=== PATIENT | male | born 1950 | race Caucasian/White ===

== ENCOUNTER 2022-08-11 13:41 | Emergency (ER) | payer MEDICARE, SELFPAY ==
[2022-08-11 14:11] VITALS: BP 118/72; PULSE 80; RESP 16; TEMP 36.5; O2SAT 97; BMI 25.8
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
--- NOTE | 2022-08-11 14:29 | XR_ITS ---
WS: [id number] XR ribs RT mn 3V w CXR1V [id number] REASON FOR EXAM: fall injury with rib pain FINDINGS: Cardiac device overlying the chest with left subclavian transvenous leads to the right HM and right v entricular apex. Moderate cardiomegaly. Calcified granulomatous disease in both hemithoraces. Minimally displaced fractures of the right posterior lateral fourth to the eighth ribs. This is assoc iated with a small amount of subcutaneous emphysema in the adjacent soft tissues of the right chest w all. There is also a small/moderate volume right pneumothorax, lung apex just below the right second rib. Blunting of the right costophrenic angle which may be old pleural scarring or indicate a small amount of pleural fluid. XR/XR ribs RT mn 3V w CXR1V [id number] IMPRESSION: Cardiomegaly. Multiple acute right rib fractures. Small amount of subcutaneous emphysema. Small/moderate volume right pneumothora x as above.
[2022-08-11] MEDS: ketorolac 60 mg/2 mL INJ IM (14:36)
--- NOTE | 2022-08-11 15:54 | CTR_ITS ---
PROCEDURE INFORMATION: Exam: CT Chest Without Contrast; Diagnostic Exam date and time: 08/11/2022 4:06 PM Age: 72 years old Clinical indication: Injury or trauma; Blunt trauma (contusions or hematomas); Injury details: Fall x yesterday. PT fell on his back and is complaining of anterior RT sided chest pain; Additional info: Right rib FX with small pneumothorax TECHNIQUE: Imaging protocol: Diagnostic computed tomography of the chest without contrast. Radiation optimization: All CT scans at this facility use at least one of these dose optimization techniques: automated exposure control; mA and/or kV adjustment per patient size (includes targeted exams where dose is matched to clinical indication); or iterative reconstruction. COMPARISON: CR XR ribs RT mn 3V w CXR1V [id number] 08/11/2022 2:45 PM RADIATION DOSE METRICS: Total DLP (mGy-cm): 476.7 FINDINGS: Tubes, catheters and devices: Left approach dual lead pacemaker. Lungs: Unremarkable. No consolidation. No masses. Pleural spaces: Small right pneumothorax measuring approximately 10% of the right hemithorax. Trace right pleural effusion. Heart: Coronary vasculature calcifications. Lymph nodes: Unremarkable. No enlarged lymph nodes. Vasculature: Unremarkable. No aortic aneurysm. Bones/joints: Acute fracture of the right 4th 5th 6th 7th ribs. Soft tissues: Emphysema of the right chest wall. CT/CT chest wo con [id number] IMPRESSION: 1. Acute fractures of the right 4th, 5th, 6th and 7th ribs. 2. Small right pneumothorax which remains unchanged from prior examination. 3. Trace right pleural effusion.
[2022-08-11] MEDS: acetaminophen 500 mg Tablet 1000 MG PO (17:04)
[2022-08-11 17:14] VITALS: PULSE 75; RESP 16; O2SAT 98
== END 2022-08-11 17:15 | disposition home or self-care (01) ==
PROVIDERS: Emergency Provider Physician Assistant
DX: S27.0XXA Traumatic pneumothorax, initial encounter (principal); S22.41XA Multiple fractures of ribs, right side, initial encounter for closed fracture; I25.10 Atherosclerotic heart disease of native coronary artery without angina pectoris; Z79.82 Long term (current) use of aspirin; Z95.0 Presence of cardiac pacemaker; Z95.5 Presence of coronary angioplasty implant and graft; W01.198A Fall on same level from slipping, tripping and stumbling with subsequent striking against other object, initial encounter
CPT/HCPCS: 71101; 71250; 96372; 99285; J1885

== ENCOUNTER 2022-08-13 13:17 | Observation (INO) | payer MEDICARE, SELFPAY ==
[2022-08-13] VITALS (12 sets, daily range): BP systolic 159–199; BP diastolic 77–102; PULSE 72–88; RESP 16–19; TEMP 36.7–36.8; O2SAT 92–100
--- NOTE | 2022-08-13 13:33 | ECG_ITS ---
[facility] Test Date: 2022-08-13 Pat Name: Rahul Carl Department: Room: Gender: Male .Net Architect: : [id number] Requested By: Charly Macdonald Order Number: [id number] Meagan MD: Jeanette Rosenthal M.D. Measurements Intervals [place] Rate: 84 P: 46 GA: 186 QRS: -51 QRSD: 150 T: 23 QT: 428 QTc: 507 Interpretive Statements SINUS RHYTHM POSSIBLE LEFT ATRIAL ENLARGEMENT [-0.1mV P-WAVE IN V1/V2] LEFT AXIS DEVIATION [QRS AXIS < -30] RIGHT BUNDLE BRANCH BLOCK [120+ ms QRS DURATION, UPRIGHT V1, 40+ ms S IN I/aVL/V4/V5/V6] No previous ECG available for comparison Electronically Signed On 08-14-2022 8:36:33 CDT by Jeanette Rosenthal M.D. [id number]
--- NOTE | 2022-08-13 14:31 | XRR_ITS ---
PROCEDURE INFORMATION: Exam: XR Chest Exam date and time: 08/13/2022 2:36 PM Age: 72 years old Clinical indication: Injury or trauma; Fall; Blunt trauma (contusions or hematomas); Prior surgery; Surgery type: Pacemaker TECHNIQUE: Imaging protocol: Radiologic exam of the chest. Views: 1 view. COMPARISON: CT chest con [id number] 08/11/2022 4:06 PM FINDINGS: Tubes, catheters and devices: Cardiac device left anterior chest in good position. Lungs: Unremarkable. No consolidation. Pleural spaces: Unremarkable. No pleural effusion. No pneumothorax. Heart/Mediastinum: Unremarkable. No cardiomegaly. Bones/joints: Unremarkable. XR/XR chest 1V portable [id number] IMPRESSION: 1. No acute findings. 2. Cardiac device left anterior chest in good position
--- NOTE | 2022-08-13 14:33 | ED_ITS ---
HPI - General Adult General: Chief complaint: Fall Stated complaint: Fell again, states broken ribs Time Seen by Provider: 08/13/22 14:31 History of Present Illness: Patient is a 72-year-old male with a history of right-sided rib fracture presenting to the emergency with an episode of syncope and right-sided rib pain. Patient tells me that earlier today about an hour ago she he was at home standing when he passed out and fell onto his right side. Patient complains of headache worsening right-sided rib pain. In addition, patient reporting hitting his head during the episode of fall. Patient denies any anticoagulation. Of note, on 08/11/2020, patient also had another episode of light-headedness. At that point time, patient was diagnosed with 3 right-sided rib fractures. Patient denies any associate chest pain, shortness of palpitation or lightheadedness prior to the episode of syncope. Patient denies any focal weakness in the arms or legs. Denies any diarrhea melena /hematochezia. No complaints. Patient denies any decrease in p.o. intake. Patient denies any cough, runny nose, sore throat. Patient reports the right side of his chest chest is worsening in terms of pain. Onset: 1 hr ago Duration:ongoing Location: Severity:moderate Associated symptoms: Reports chest pain (+R lateral chest pain); Deny dyspnea, nausea, rash, palpitations or vomiting Review of Systems Const: Denies: fever(s) or chills Eyes: Denies: change in vision ENMT: Denies: mouth pain Card: Reports: chest pain (+R lateral chest pain); Denies: palpitations Resp: Denies: dyspnea or non-productive cough GI: Denies: abdominal pain, nausea, vomiting or diarrhea : Denies: dysuria Musc: Denies: extremity pain Skin/Breast: Denies: rash or new lesions Neuro: Denies: weakness in extremities Psych: Reports: other (Normal mood) Freddie/Lymph: Denies: easy bruising PFS ED PFSH: Medical History Rib fracture Surgical History No pertinent past surgical history Social History Smoking and tobacco status: never smoked Alcohol intake: never Substance/Drug Use: never Physical Exam Const: COMMON NORMALS: alert HENMT: COMMON NORMALS: atraumatic HEAD & SCALP: atraumatic MOUTH: moist mucous membranes not abnormal Eye: COMMON NORMALS: EOMs intact bilaterally and conjunctivae normal CONJUNCTIVA: Yes conjunctivae normal Neck/C-Spine: COMMON NORMALS: full ROM and supple Chest: OTHER: +No palpable crepitus on the R side, +moderate tenderness to palpation over the R lateral chest Resp: COMMON NORMALS: normal respiratory effort and clear to auscultation bilaterally AUSCULTATION: clear to auscultation bilaterally Cardio: COMMON NORMALS: regular rate RATE: regular rate GI: COMMON NORMALS: Soft to palpation and non-tender PALPATION: Yes Soft to palpation Extremity: COMMON NORMALS: full ROM Neuro: SENSORIUM/ORIENTATION: Yes alert MOTOR EXAM: No Abnormal motor strength present and Other motor observations present (no focal motor deficits) Psych: COMMON NORMALS: speech normal SPEECH: Yes normal speech MOOD & AFFECT: Yes euthymic mood Course Vital Signs: Vital signs: Vital Signs Temperature 98.1 F 08/13/22 13:27 Pulse Rate 72 08/13/22 15:21 Respiratory Rate 18 08/13/22 15:21 Blood Pressure 182/89 08/13/22 15:21 Pulse Oximetry 100 08/13/22 15:21 Oxygen Delivery Me thod 08/13/22 15:21 MDM - General Adult Medical Decision Making Patient is a 72-year-old male with a history of right-sided rib fracture presenting to the emergency with an episode of syncope and right-sided rib pain occurred 1 hour ago. On physical exam, patient is moderate tenderness to palpation over the right ribs. Lungs appear to be clear bilaterally. Patient is hemodynamically stable. Neurological exam is intact other than gait which patient upon standing reports lightheadedness. Troponin x2 with delta less than 5. Patient's device was interrogated today which did not show any signs of dysrhythmia. Given recurrent syncope in the last 72 hours and history of cardiomegaly, I discussed with Dr. Diop recommended getting an echo. Disposition: admission Lab Data : 08/13/22 15:19 Radiology Impressions Chest X-Ray 08/13/22 14:31 IMPRESSION: 1. No acute findings. 2. Cardiac device left anterior chest in good position Head CT 08/13/22 14:37 IMPRESSION: No acute intracranial abnormality. Ribs X-Ray 08/13/22 15:24 Impression: No change in multiple right rib fractures minimal right subcutaneous emphysema an minute right pneumothorax. Laboratory Results WBC 6.7 10^3/uL (4.0-10.0) 08/13/22 15:19 RBC 4.57 10^6/uL (4.1-5.3) 08/13/22 15:19 Hgb 12.7 g/dL (11.7-16.6) 08/13/22 15:19 Hct 39.7 % (42.0-52.0) L 08/13/22 15:19 MCV 86.9 fl (80-94) 08/13/22 15:19 MCH 27.8 pg (28.0-34.0) L 08/13/22 15:19 MCHC 32.0 g/dL (30.0-36.0) 08/13/22 15:19 RDW 16.3 % (12.1-15.1) H 08/13/22 15:19 Plt Count 167 10^3/cmm (130-400) 08/13/22 15:19 MPV 9.1 fL (7.4-10.4) 08/13/22 15:19 Neut % (Auto) 79.3 % 08/13/22 15:19 Lymph % (Auto) 13.1 % 08/13/22 15:19 [place] % (Auto) 5.1 % 08/13/22 15:19 Eos % (Auto) 1.8 % 08/13/22 15:19 Baso % (Auto) 0.3 % 08/13/22 15:19 Neut # (Auto) 5.34 10^3/uL (1.8-7.7) 08/13/22 15:19 Lymph # (Auto) 0.9 10^3/uL (0.8-4.8) 08/13/22 15:19 [place] # (Auto) 0.3 10^3/uL (0.2-0.9) 08/13/22 15:19 Eos # (Auto) 0.1 10^3/uL (0.0-0.8) 08/13/22 15:19 Baso # (Auto) 0.0 10^3/uL (0.0-0.1) 08/13/22 15:19 Nucleated RBC % (auto) 0 % 08/13/22 15:19 Nucleated RBCs # 0.0 /100WBC 08/13/22 15:19 Troponin T Baseline 10 ng/L (0-15) 08/13/22 15:19 Imaging Data Other Imaging: Radiologist's impression: [address] [place] [address] CT Scan Report Signed Patient: Rahul Carl Unit #: [id number] : 1950 Age/Sex: 72 / M ADM Date: 08/13/22 Loc: ER Room/Bed: Attending Dr: Ordering Provider/Ordering MD: Charly Macdonald MD Date of Service: 08/13/22 Procedure(s): CT head wo con* [id number] Accession Number(s): [id number] Report Number: [id number] WS: [id number] CT head wo con* [id number] REASON FOR EXAM: fall IV CONTRAST ADMINISTERED: None. TOTAL EXAM DLP: 1106.[address] scans at [facility] use at least one of these dose optimization techniques: automated exposure control; mA and/or kV adjustment per patient size (includes targeted exams where dose is matched to clinical indication); or iterative reconstruction. FINDINGS: No midline shift or other significant mass effect. No findings of intracranial hemorrhage and no extra-axial fluid collection noted. Symmetric low-attenuation in the periventricular white matter consistent with small vessel chronic ischemic demyelination. No acute brain parenchymal abnormality is identified. The skull base and calvarium are intact. CT/CT head wo con* [id number] IMPRESSION: No acute intracranial abnormality. ? Dictated By: Rashaun Velarde Jr, MD Signed By: Rashaun Velarde Jr, MD Signed Date/Time: 08/13/22 1514 DD/ [address] [address] XRay Report Signed Patient: Rahul Carl Unit #: [id number] : 1950 Age/Sex: 72 / M ADM Date: 08/13/22 Loc: ER Room/Bed: Attending Dr: Ordering Provider/Ordering MD: Charly Macdonald MD Date of Service: 08/13/22 Procedure(s): XR chest 1V portable [id number] Accession Number(s): [id number] Report Number: [id number] PROCEDURE INFORMATION: Exam: XR Chest Exam date and time: 08/13/2022 2:36 PM Age: 72 years old Clinical indication: Injury or trauma; Fall; Blunt trauma (contusions or hematomas); Prior surgery; Surgery type: Pacemaker TECHNIQUE: Imaging protocol: Radiologic exam of the chest. Views: 1 view. COMPARISON: CT chest [facility] [id number] 08/11/2022 4:06 PM FINDINGS: Tubes, catheters and devices: Cardiac device left anterior chest in good position. Lungs: Unremarkable. No consolidation. Pleural spaces: Unremarkable. No pleural effusion. No pneumothorax. Heart/Mediastinum: Unremarkable. No cardiomegaly. Bones/joints: Unremarkable. XR/XR chest 1V portable [id number] IMPRESSION: 1. No acute findings. 2. Cardiac device left anterior chest in good position ? Dictated By: Tam Moore Signed By: Tam Moore Signed Date/Time: 08/13/22 1500 DD/ 1436 Discharge Plan Discharge Patient Disposition: Admitted As Inpatient Clinical Impression: Syncope and collapse, Pain in rib Condition: Stable Coding Level of Care Code ED Interlocking And Signal Mechanic for Chg Fwd Exam Comprehensive
--- NOTE | 2022-08-13 14:37 | CT_ITS ---
WS: [id number] CT head wo con* [id number] REASON FOR EXAM: fall IV CONTRAST ADMINISTERED: None. TOTAL EXAM DLP: 1106.[address] scans at [facility] use at least one of these dose optimization techniques: automat ed exposure control; mA and/or kV adjustment per patient size (includes targeted exams where dose is matched to clinical indication); or iterative reconstruction. FINDINGS: No midline shift or other significant mass effect. No findings of intracranial hemorrhage and no extra-axial fluid collection noted. Symmetric low-attenuation in the periventricular white matter consistent with small vessel chronic is chemic demyelination. No acute brain parenchymal abnormality is identified. The skull base and calvarium are intact. CT/CT head wo con* [id number] IMPRESSION: No acute intracranial abnormality.
[2022-08-13] MEDS: morphine 4 mg/mL SDV 1 mL IVP (15:20)
[2022-08-13] MEDS: sodium chloride 0.9% 1,000 ML 999 ML IV (15:21)
--- NOTE | 2022-08-13 15:24 | XR_ITS ---
WS: [id number] Right rib detail, 4 views, 08/13/2022 Clinical Data: rib pain Comparison: Chest with right rib detail, 08/11/2022 Findings: The fractures of the lateral aspect of the right fourth through eighth rib remain the same. There is a small amount of right lateral subcutaneous emphysema. A new right pneumothorax may be present. Ther e is a small right pleural effusion. XR/XR ribs RT 2V* [id number] Impression: No change in multiple right rib fractures minimal right subcutaneous emphysema an minute right pneumothorax.
[2022-08-13 15:33] LABS: Basophils % 0.3 %; Eosinophils # 0.1 10^3/uL (0.0-0.8); Eosinophils % 1.8 %; Hematocrit 39.7 % (42.0-52.0); Hemoglobin 12.7 g/dL (11.7-16.6); Lymphocytes # 0.9 10^3/uL (0.8-4.8); Lymphocytes % 13.1 %; Mean Corpuscular Hemoglobin 27.8 pg (28.0-34.0); Mean Corpuscular Volume 86.9 fl (80-94); Mean Platelet Volume 9.1 fL (7.4-10.4); Monocytes # 0.3 10^3/uL (0.2-0.9); Monocytes % 5.1 %; Neutrophils # 5.34 10^3/uL (1.8-7.7); Neutrophils % 79.3 %; Nucleated Red Blood Cells % 0 %; Platelet Count 167 10^3/cmm (130-400); Red Blood Count 4.57 10^6/uL (4.1-5.3); Red Cell Distribution Width 16.3 % (12.1-15.1); White Blood Count 6.7 10^3/uL (4.0-10.0)
[2022-08-13 16:18] LABS: Troponin(5th) Baseline 10 ng/L (0-15)
--- NOTE | 2022-08-13 16:46 | ECG_ITS ---
[facility] Test Date: 2022-08-13 Pat Name: Rahul Carl Department: Room: Gender: Male Special Services Agent: : 1950 Requested By: Charly Macdonald Order Number: [id number] Rhodes MD: Jeanette Rosenthal M.D. Measurements Intervals [place] Rate: 67 P: 35 MN: 180 QRS: -54 QRSD: 149 T: 0 QT: 464 QTc: 491 Interpretive Statements SINUS RHYTHM LEFT AXIS DEVIATION [QRS AXIS < -30] RIGHT BUNDLE BRANCH BLOCK [120+ ms QRS DURATION, UPRIGHT V1, 40+ ms S IN I/aVL/V4/V5/V6] Compared to ECG 08/13/2022 13:33:36 No significant changes Electronically Signed On 08-14-2022 8:40:00 CDT by Jeanette Rosenthal M.D. [email or web address] specialty [email or web address] - [id number]
--- NOTE | 2022-08-13 18:14 | USR_ITS ---
PROCEDURE INFORMATION: Exam: US Duplex Bilateral Extracranial Arteries, Carotid Arteries Exam date and time: 08/13/2022 6:48 PM Age: 72 years old Clinical indication: Other: Syncope; Patient HX: Fell a few days ago and broke RT ribs; Additional info: Recurrent syncope TECHNIQUE: Imaging protocol: Real-time Duplex ultrasound scan of the bilateral carotid and vertebral arteries combining grimaldo scale, color Doppler and spectral waveform analysis. Bilateral exam. Exam focused on the carotid arteries. COMPARISON: CT head wo con* [id number] 08/13/2022 2:53 PM FINDINGS: Right common carotid artery: Mild plaquing. No occlusion or stenosis. Waveforms are normal. Right internal carotid artery: Mild plaquing. No occlusion or stenosis. Waveforms are normal. Right ICA/CCA ratio: Within normal limits. Right external carotid artery: No stenosis in the origin. Right vertebral artery: Antegrade flow. Left common carotid artery: Mild plaquing. No occlusion or stenosis. Waveforms are normal. Left internal carotid artery: Mild plaquing. No occlusion or stenosis. Waveforms are normal. Left ICA/CCA ratio: Within normal limits. Left external carotid artery: No stenosis in the origin. Left vertebral artery: Antegrade flow. US/CV carotid duplex BI* [id number] IMPRESSION: No carotid arterial stenosis. REFERENCES: SRU CRITERIA. The degree of internal carotid artery stenosis is based on criteria defined by the Society of Radiologists in Ultrasound (SRU). Normal is no stenosis. Mild is less than 50% stenosis. Moderate is 50-69% stenosis. Severe is greater than 69% stenosis to near occlusion. Near occlusion is a markedly narrowed lumen. Total occlusion is no detectable patent lumen.
--- NOTE | 2022-08-13 18:14 | USCV_ITS ---
Rahul Carl Age: 72 Gender: M : 1950 Exam Date: 08/13/2022 18:29 Ordering Phys: Yvon Philip MD Technologist: Martha Alva Exam Location: [facility] [place] Indication: Syncope episode BP: 172 / 78 HR: 72 Rhythm: Sinus Technical Quality: Poor MEASUREMENTS (Male / Female) Normal Values 2D ECHO LV Diastolic Diameter PLAX 5.0 cm 4.2 - 5.9 / 3.9 - 5.3 cm LV Systolic Diameter PLAX 3.0 cm LV Chamber Size 3.8 cm IVS Diastolic Thickness 0.9 cm 0.6 - 1.0 / 0.6 - 0.9 cm IVS Systolic Thickness 2.0 cm LVPW Diastolic Thickness 1.3 cm 0.6 - 1.0 / 0.6 - 0.9 cm LVPW Systolic Thickness 1.5 cm RV Chamber Size 3.1 cm LVOT Diameter 2.0 cm LV Ejection Fraction 2D Teich 70.5 % LV Ejection Fraction MOD 2C 40.8 % LV Ejection Fraction 2C AL 42.7 % LA Diameter 4.2 cm LA Width 3.4 cm LA Height 4.3 cm RA Width 3.3 cm RA Height 3.6 cm Aorta at Sinotubular Diameter 3.4 cm M-MODE Aortic Annulus Diameter 4.4 cm LA Ao Ratio MM 1.1 MV E Point Septal Separation 0.9 cm DOPPLER AV Peak Velocity 116.0 cm/s LVOT Peak Velocity 74.0 cm/s AV Area Cont Eq vti 2.2 cm squared AV Area Cont Eq pk 2.1 cm squared MV Area PHT 6.9 cm squared Mitral E to A Ratio 0.7 MV E' Velocity 32.0 cm/s Mitral E to MV E' Ratio 14.7 Mitral E to LV E' Lateral Ratio 12.8 Mitral E to LV E' Septal Ratio 17.3 TR Peak Velocity 171.6 cm/s TR Peak Gradient 11.8 mmHg TR Mean Velocity 120.6 cm/s TR Mean Gradient 6.4 mmHg TR Velocity Time Integral 39.2 cm TV Peak E Velocity 43.0 cm/s Right Atrial Pressure 3.0 mmHg Pulmonary Artery Systolic Pressu 14.8 mmHg PV Peak Velocity 87.3 cm/s RV Acceleration Time 0.2 s RV Ejection Time 0.3 s RV AcT/ET 0.5 FINDINGS Left Ventricle Limited views are obtained. Parasternal and apical views are present but limited. Probably normal left ventricular size and function. Ejection fraction approximately 60%. Grade 1 diastolic dysfunction. Right Ventricle Normal right ventricular size and systolic function. Normal right ventricular systolic pressure. Right Atrium The right atrium is normal in size. Left Atrium Mildly increased left atrial size. Mitral Valve Mitral valve not well visualized. No mitral valve regurgitation. Aortic Valve Aortic valve not well visualized. No aortic valve stenosis. No aortic valve regurgitation. Tricuspid Valve Tricuspid valve not well visualized. Trace tricuspid valve regurgitation. Pulmonic Valve Pulmonic valve not well visualized. Pericardium Normal pericardium without effusion. Aorta Aorta not well visualized. IVC Inferior vena cava not visualized. CONCLUSIONS Limited views are obtained. Parasternal and apical views are present but limited. Probably normal left ventricular size and function. Ejection fraction approximately 60%. Grade 1 diastolic dysfunction. Mildly increased left atrial size. There are no prior echocardiogram studies to compare. Dr. Piyush Guthrie MD (Electronically Signed) Final Date: 14 August 2022 08:42 S
--- NOTE | 2022-08-13 18:22 | P.HP_ITS ---
Providers/Chief Complaint Chief Complaint: Fell again, states broken ribs History of Present Illness 72-year-old gentleman presents after several syncopal episodes in the last several days. He is here visiting from [place] for fishing. He fell down with a syncopal episode on 08/11 at which time he suffered rib fractures on the right side 3-7. He was post be returning today for a repeat chest x-ray due to previously noted minimal pneumothorax, and on the way out the door again nearly fainted, but states braced himself against the door handle and remained standing through the worst of the symptoms. He does not have any chest pain or shortness of breath. Has otherwise been in baseline state of health. States that these episodes have been going on intermittently sometimes for a while, has had he states reevaluation of his cardiac stents with 2 angiograms with his cardiologis t and states that there were no blockages. He also has a pacemaker which was interrogated in ER. A outside sales account representative had to be summoned since we do not have the interrogation device for his pacemaker. He denies that there is any triggering of his symptoms when he turns his head. His did not note any seizure-like activity. He denies any history of seizures. He has not had any other infection-like symptoms. He denies any recent medication changes apart from reducing the dose of statin from 40 to 20 mg. He states he maintains adequate oral intake. Baseline troponin is 10. EKG LAD, RBBB. Chest x-ray without acute findings, head CT nonacute. Rib x-ray unchanged rib fractures, minute right pneumothorax. Review of Systems Const: Denies: fever(s), chills, body aches or malaise Eyes: Denies: change in vision, eye discomfort or eye redness ENMT: Denies: throat pain, oral sores or ear or mastoid pain Card: Reports: syncope; Denies: chest pain, edema, pre-syncope or dyspnea on exertion Resp: Denies: dyspnea, productive cough, change in phlegm color or hemoptysis GI: Denies: abdominal pain, nausea, vomiting, diarrhea, constipation, hematochezia or melena : Denies: flank pain, difficulty urinating, urinary frequency or hematuria Musc: Denies: back pain, joint swelling or joint redness Skin/Breast: Denies: rash or new lesions Neuro: Reports: dizziness; Denies: headache(s), numbness in extremities, weakness in extremities, vertigo, confusion or seizure-like activity Endo: Denies: polyuria or polydipsia Freddie/Lymph: Denies: easy bleeding or tender lymph nodes All/Imm: Denies: urticaria or tongue swelling Medications/Allergies Home Medications Medication Instructions Recorded Confirmed Last Taken Type doxycycline hyclate 100 mg capsule 100 mg PO BID 10 days #20 caps 08/11/22 08/13/22 08/13/22 Rx acyclovir 400 mg tablet 400 mg PO EVERY OTHER DAY 08/13/22 08/13/22 08/11/22 History aspirin 81 mg tablet,delayed 81 mg PO DAILY 08/13/22 08/13/22 08/11/22 History release atorvastatin 40 mg tablet 20 mg PO DAILY 08/13/22 08/13/22 08/11/22 History meclizine 25 mg tablet 25 mg PO TID PRN Dizziness 08/13/22 08/13/22 Unknown History nitroglycerin 0.4 mg sublingual 0.4 mg sublingual Q5M PRN Chest 08/13/22 08/13/22 Unknown History tablet (Nitrostat) Pain omeprazole 40 mg capsule,delayed 40 mg PO DAILY 08/13/22 08/13/22 08/11/22 History release oxycodone-acetaminophen 10 mg-325 1 tab PO Q4H PRN Pain 08/13/22 08/13/22 08/11/22 History mg tablet Allergies Allergy/AdvReac Type Severity Reaction Status Date / Time No Known Allergies Allergy Verified 08/11/22 14:11 PFSH Acute PFSH: Medical History CAD (coronary artery disease) Cervical spine fracture At 17 yo, had c-spine surgery Rib fracture Surgical History H/O hand surgery No pertinent past surgical history S/P placement of cardiac pacemaker Stented coronary artery Family History Brother Cancer Social History Smoking and tobacco status: never smoked Alcohol intake: never Substance/Drug Use: never Vitals/I&O/Wt Last Vital Signs Temp 98.1 F 08/13/22 13:27 Pulse 83 08/13/22 18:07 Resp 17 08/13/22 18:07 BP 182/89 08/13/22 15:21 Pulse Ox 99 08/13/22 18:07 O2 Del Method 08/13/22 18:07 Weight last 48 hrs Weight 81.647 kg Physical Exam Narrative: Family at bedside. Const: COMMON NORMALS: patient oriented x3 and alert GENERAL APPEARANCE: cooperative ORIENTATION/CONSCIOUSNESS: Yes awake HENMT: COMMON NORMALS: oropharynx normal Neck/C-Spine: COMMON NORMALS: no JVD Resp: COMMON NORMALS: normal respiratory effort and clear to auscultation bilaterally AUSCULTATION: clear to auscultation bilaterally Cardio: COMMON NORMALS: no JVD, regular rhythm, S1 normal heart sound present, S2 normal heart sound present and No murmurs present (Cardio) RHYTHM: regular rhythm HEART SOUNDS: S1 normal heart sound present and S2 normal heart sound present GI: COMMON NORMALS: Normal to inspection, nondistended, normoactive bowel sounds present, Soft to palpation and non-tender PALPATION: Yes Soft to palpation Extremity: COMMON NORMALS: no joint enlargement and no pedal edema Neuro: COMMON NORMALS: patient oriented x3 and moves all extremities SENSORIUM/ORIENTATION: Yes alert Skin: COMMON NORMALS: no rashes or lesions noted GENERAL SKIN EXAM: no rashes or lesions noted Data : 08/13/22 15:19 08/13/22 18:10 A&P Assessment and plan (1) Syncope and collapse: Episodes of dizziness, episodes of presyncope and syncope and collapse, one of them resulting in rib fractures below. Discussed with him in case he is feeling lightheaded or presyncopal to immediately sit down or lie down even if on the floor. Will assess orthostatics. Check TTE given his cardiac history. Check carotid duplex. Pacemaker was interrogated in the ER and did not show abnormal rhythms. He otherwise has had work-up with coronary angiography he states with his visitor services coordinator. Monitor on telemetry. Status: Acute (2) HTN (hypertension): He is noted hypertensive in ER. Assess orthostatics. He reports blood pressures do not usually run this high, however, cannot remember measurements from home. Status: Acute (3) Multiple fractures of ribs of right side: Continue symptomatic management. Status: Acute Qualifiers: Encounter type: initial encounter Fracture type: closed Qualified Code(s): S22.41XA - Multiple fractures of ribs, right side, initial encounter for closed fracture (4) Pneumothorax: Reassessment x-ray with minute pneumothorax improved from prior. Status: Acute Plan CAD status post stenting PPM Attestations Medical Necessity Statement*: Place in observation for additional assessment abdomen with syncope, presyncope, underlying cardiovascular disease. Coding Level of Care Code Acute Sausage Canner for g Fwd Diagnoses Syncope and collapse R55 HTN (hypertension) I10 Multiple fractures of ribs of right side S22.41XA Encounter type: initial encounter Fracture type: closed Pneumothorax J93.9
[2022-08-13] MEDS: morphine 4 mg/mL SDV 1 mL 2 MG IVP ×2 (18:55→20:54)
[2022-08-13 19:11] LABS: Alanine Aminotransferase 19 U/L (0-41); Albumin Level 3.9 g/dL (3.5-5.2); Alkaline Phosphatase 82 U/L (40-130); Anion Gap 13.5 (5-19); Aspartate Amino Transferase 29 U/L (0-40); Blood Urea Nitrogen 6 mg/dL (8-23); Carbon Dioxide 25 mmol/L (22-29); Chloride 100 mmol/L (98-107); Globulin 2.9 g/dL (1.3-4.6); Glucose 105 mg/dL (65-115); Osmolality Calculated 278 mOsm/kg (285-295); Potassium 3.5 mmol/L (3.5-5.1); Sodium 135 mmol/L (136-145); Total Bilirubin 0.7 mg/dL (0.15-1.2); Total Protein 6.8 g/dL (6.6-8.7); Troponin 5 2HR 10.62 ng/L (0-15)
[2022-08-13 19:20] LABS: Troponin 5 2HR Delta -0.62 ABS# (0-10)
[2022-08-13 19:40] LABS: Magnesium 1.7 mg/dL (1.7-2.3)
--- NOTE | 2022-08-13 22:09 | ECG_ITS ---
[facility] Test Date: 2022-08-13 Pat Name: Rahul Carl Department: Room: 266 Gender: Male Primary Therapist: : 1950 Requested By: Charly Macdonald Order Number: [id number] Meagan MD: Piyush Guthrie M.D. Measurements Intervals [place] Rate: 70 P: 37 AR: 186 QRS: -46 QRSD: 150 T: 15 QT: 439 QTc: 474 Interpretive Statements SINUS RHYTHM RIGHT BUNDLE BRANCH BLOCK [120+ ms QRS DURATION, UPRIGHT V1, 40+ ms S IN I/aVL/V4/V5/V6] LEFT ANTERIOR FASCICULAR BLOCK [QRS AXIS <= -45, QR IN I, RS IN II] Compared to ECG 08/13/2022 16:46:17 Left anterior fascicular block now present Left-axis deviation no longer present Electronically Signed On 08-14-2022 9:43:03 CDT by Piyush Guthrie M.D. [id number]
[2022-08-13 22:39] LABS: Troponin 5 6HR 12.64 ng/L (0-15)
[2022-08-13 22:44] LABS: Troponin 5 6HR Delta 2.64 ng/L (0-12)
[2022-08-13] MEDS: oxyCODONE-APAP 10-325 mg Tablet 1 TAB PO (23:15)
[2022-08-13] MEDS: labetalol 5 mg/mL SDV 20mL 10 MG IVP (23:36)
[2022-08-14] VITALS (11 sets, daily range): BP systolic 160–194; BP diastolic 80–92; PULSE 60–71; RESP 15–19; TEMP 36.4–36.9; O2SAT 95–97
[2022-08-14] MEDS: oxyCODONE-APAP 10-325 mg Tablet 1 TAB PO ×3 (04:33→13:31)
[2022-08-14] MEDS: atorvastatin 40 mg Tablet 20 MG PO (09:43)
[2022-08-14] MEDS: pantoprazole DR 40 mg Tablet PO (09:44)
[2022-08-14] MEDS: aspirin 81 mg EC Tablet PO (09:44)
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
[2022-08-14] MEDS: midodrine 5 mg TABLET PO (13:18)
--- NOTE | 2022-08-14 15:13 | PC.NURSE ---
Discharge Note Patient discharged to [home] via [wheel chair] accompanied by [family]. Discharge instructions reviewed with patient and/or provider service representative. Mobile pharmacy medications and/or prescriptions provided. Belongings/home medications returned.
== END 2022-08-14 15:17 | disposition home or self-care (01) ==
LOC: ER 14:40 → MEDSURG 20:57
PROVIDERS: Admitting Provider Internal Medicine; Emergency Provider Emergency Medicine; Visit Provider Internal Medicine
DX: R55 Syncope and collapse (principal); I10 Essential (primary) hypertension; S22.41XA Multiple fractures of ribs, right side, initial encounter for closed fracture; W19.XXXA Unspecified fall, initial encounter; J93.9 Pneumothorax, unspecified; Z95.0 Presence of cardiac pacemaker; Z79.82 Long term (current) use of aspirin; I25.10 Atherosclerotic heart disease of native coronary artery without angina pectoris
CPT/HCPCS: 36415; 70450; 71045; 71100; 80053; 83735; 84484; 85025; 93005; 93306; 93880; 96361; 96365; 96375; 96376; 99285; G0378; J2270; J3475; J3490; J7030

== ENCOUNTER 2024-02-21 21:53 | Inpatient (IN) | payer MEDICARE, SELFPAY ==
--- NOTE | 2024-02-21 21:54 | ECG_ITS ---
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 Measurements Intervals [place] Rate: 61 P: 151 MA: 205 QRS: -64 QRSD: 146 T: 13 QT: 476 QTc: 481 Interpretive Statements ELECTRONIC ATRIAL PACEMAKER RIGHT BUNDLE BRANCH BLOCK [120+ ms QRS DURATION, UPRIGHT V1, 40+ ms S IN I/aVL/V4/V5/V6] LEFT ANTERIOR FASCICULAR BLOCK [QRS AXIS <= -45, QR IN I, RS IN II] POSSIBLE SEPTAL MYOCARDIAL INFARCTION , PROBABLY OLD [30 ms Q WAVE IN V1/V2] Compared to ECG 08/13/2022 22:09:31 Myocardial infarct finding now present Sinus rhythm no longer present Electronically Signed On 02-22-2024 23:49:45 CDT by Wenceslao Redmond M.D. [id number]
--- NOTE | 2024-02-21 21:54 | XRR_ITS ---
PROCEDURE INFORMATION: Exam: XR Chest Exam date and time: 02/21/2024 10:08 PM Age: 73 years old Clinical indication: Pain; Chest pressure; Prior surgery; Surgery date: 6+ months; Surgery type: Pacer; Additional info: Cxp TECHNIQUE: Imaging protocol: Radiologic exam of the chest. Views: 1 view. COMPARISON: CR XR chest 1V portable [id number] 08/13/2022 2:36 PM FINDINGS: Lungs: No focal consolidation. Pleural spaces: No evidence of pneumothorax. No evidence of pleural effusion. Heart/Mediastinum: Cardiomediastinal silhouette is within normal limits. Left subclavian approach dual-chamber pacemaker. Bones/joints: No evidence of acute osseous abnormality. Multiple chronic right-sided rib fractures. XR/XR chest 1V portable [id number] IMPRESSION: 1. No acute cardiopulmonary abnormality.
[2024-02-21 21:55] VITALS: BP 133/78; PULSE 61; RESP 18; TEMP 36.7; O2SAT 95; BMI 26.6
--- NOTE | 2024-02-21 21:56 | W.ED.CHESTPA ---
HPI - Chest Pain General: Chief Complaint: Chest Pain Stated Complaint: CP Time Seen by Provider: 02/21/24 21:54 History of Present Illness: 73-year-old male presents to the emergency department via EMS personnel with complaints of feeling like he was having syncopal episodes. EMS personnel presented EKG cardiac rhythm that shows wide-complex tachycardia with a heart rate of 116 on 3 separate occasions during transport. He states he has had these recurrent episodes of syncope in the past. He does have a history of pneumothorax secondary to trauma, CHF-grade 1 diastolic dysfunction, coronary artery disease, and coronary artery stents. He states he does have a permanent pacemaker in place. He states he is originally from [place] but is down visiting his family and trying to help take care of his sister. He states that tonight his children witnessed him having 2 near syncopal episodes where he became dizzy and lightheaded. He states he does have some intermittent left anterior chest pain that he describes as a 4 out of 10 and sharp. He denies nausea, vomiting or shortness of breath. The patient's family states that he does drink approximately 20 beers daily and has for many years. Associated symptoms: Reports syncope Review of Systems General: Reports: 10 or more systems reviewed and unremarkable except in HPI and below Card: Reports: chest pain and syncope [facility] PFSH: Medical History (Updated 02/22/24 @ 02:18 by Juan Ramon Tejeda MD) Atypical chest pain HTN (hypertension) Pneumothorax Pain in rib Multiple fractures of ribs of right side CAD (coronary artery disease) Cervical spine fracture At 17 yo, had c-spine surgery Rib fracture Surgical History Stented coronary artery H/O hand surgery S/P placement of cardiac pacemaker No pertinent past surgical history Family History Brother Cancer Social History Smoking and tobacco/nicotine status: never used tobacco/nicotine Alcohol intake: never Substance/Drug Use: never Physical Exam Narrative: EXAM NARRATIVE: Constitutional: the patient appears well nourished and with normal development. Vital signs reviewed as documented. HENMT: Normocephalic, atraumatic. External ears normal appearance without drainage. Nose without drainage, normal appearance. Mucus membranes moist. Neck is supple, No jugular venous distension, trachea is midline, no appreciable carotid bruits. No lymphadenopathy. No meningeal signs. Flexion, extension and lateral rotation is without pain. Eyes: Pupils are equal, round, reactive to light and accommodation. No scleral icterus. Extra-ocular movement are intact. Thorax is symmetrical and with equal rise and fall with respirations. Resp: Lungs are clear to auscultation. No wheezes, rales, crackles or ronchi at present. Cardio: Paced rhythm, positive S1, S2. No appreciable murmurs, rubs or gallops. GI: Abdominal exam reveals normal bowel sounds to all quadrants. No organomegaly. No obvious palpable masses noted. No hepatomegally appreciated. Soft, non-tender to palpation. Extremity: Extremities are non-edematous and both femoral and pedal pulses are 2+ and equal bilaterally. Moves all extremities well, sensation in all extremities. Neuro: Alert and oriented x4, person, place, time and situation. Cranial nerves II through XII are grossly intact, there is no focal neurological deficits that I can appreciate at present. Sensation intact to all extremities. 2-point discrimination intact. Light touch intact to all extremities. Motor strength in the upper and lower extremities are equal and bilateral 5/5. Psych: Cooperative, calm, normal thought process, appropriate judgment. Skin: No lesions, rashes. No gross abnormalities noted. Back: Symmetrical, no obvious deformity, No CVA tenderness Course Vital Signs: Vital signs: Vital Signs Temperature 98.0 F 02/22/24 03:00 Pulse Rate 64 02/22/24 04:00 Respiratory Rate 15 02/22/24 04:00 Blood Pressure 147/61 02/22/24 04:00 Pulse Oximetry 93 02/22/24 03:30 Oxygen Delivery Me thod Room Air 02/22/24 04:00 MDM - Chest Pain Medical Decision Making Physical exam completed and documented, I will obtain serial cardiac enzymes, serial twelve-lead EKGs, chest x-ray, CBC, CMP, urinalysis, B-type natriuretic peptide, PT/PTT/INR, and a chest x-ray. I will hold his cardiac dose aspirin as it was administered via EMS personnel. I have reviewed previous and pertinent medical records for assist in obtaining beneficial medical information to improved the care and treatment of the patient. The CBC was essentially unremarkable, the patient's sodium level was significantly low at 127, BNP was slightly elevated at 494 the patient's alcohol level was elevated at 150, patient does have a pacemaker in place and review of the initial cardiac tracing from the operations dispatcher demonstrates wide-complex tachycardia concerning for pacemaker dysfunction. The patient did complain of left chest wall pain and the cardiac enzymes were essentially normal. Given the patient's syncopal episode and hyponatremia as well as his EKG presentation from EMS I did contact the hospitalist physician to request admission to the hospital for additional evaluation treatment and care. I contacted the veterans contact representative for the patient's pacemaker and requested interrogation of the pacemaker. At the request of the hospitalist physician I also contacted Dr. Redmond the stadium attendant to consult him given the patient's cardiac history. Differential diagnosis includes electrolyte abnormality, pulmonary embolism, NSTEMI, pacemaker dysfunction, dehydration, alcohol intoxication, electrolyte abnormality, vasovagal syncope, Medical Records I reviewed the patient's medical records. Lab Data I reviewed the patient's lab results. 02/22/24 04:30 02/22/24 04:30 Radiology Impressions Chest X-Ray 02/21/24 21:54 IMPRESSION: 1. No acute cardiopulmonary abnormality. Chest CTA 02/22/24 01:49 IMPRESSION: 1. No pulmonary embolus. 2. No acute intrathoracic findings. 3. Pleural thickening with scattered calcifications, correlate with occupational exposures. 4. Additional nonacute findings as above. Laboratory Results WBC 7.18 10^3/uL (3.29-11.43) 02/21/24 21:58 RBC 4.80 10^6/uL (3.85-5.65) 02/21/24 21:58 Hgb 15.40 g/dL (11.27-16.99) 02/21/24 21:58 Hct 44.7 % (37-53) 02/21/24 21:58 MCV 93.1 fl (82-101) 02/21/24 21:58 MCH 32.1 pg (27-33) 02/21/24 21:58 MCHC 34.5 g/dL (30-55) 02/21/24 21:58 RDW 13.5 % (12.1-15.1) 02/21/24 21:58 Plt Count 149 10^3/cmm (157-399) L 02/21/24 21:58 MPV 8.8 fL (7.4-10.4) 02/21/24 21:58 Neut % (Auto) 52.2 % 02/21/24 21:58 Lymph % (Auto) 36.5 % 02/21/24 21:58 [place] % (Auto) 7.1 % 02/21/24 21:58 Eos % (Auto) 3.2 % 02/21/24 21:58 Baso % (Auto) 0.6 % 02/21/24 21:58 Neut # (Auto) 3.75 10^3/uL (1.8-7.7) 02/21/24 21:58 Lymph # (Auto) 2.6 10^3/uL (0.8-4.8) 02/21/24 21:58 [place] # (Auto) 0.5 10^3/uL (0.2-0.9) 02/21/24 21:58 Eos # (Auto) 0.2 10^3/uL (0.0-0.8) 02/21/24 21:58 Baso # (Auto) 0.0 10^3/uL (0.0-0.1) 02/21/24 21:58 Nucleated RBC % (auto) 0 % 02/21/24 21:58 Nucleated RBCs # 0.0 /100WBC 02/21/24 21:58 PT 14.40 SECONDS (12.1-14.9) 02/21/24 21:58 INR 1.08 (0.8-1.2) 02/21/24 21:58 D-Dimer 1.48 ug/mLFEU (0-0.59) H 02/21/24 22:08 Sodium 127 mmol/L (136-145) L 02/21/24 21:58 Potassium 4.8 mmol/L (3.5-5.1) 02/21/24 21:58 Chloride 95 mmol/L (98-107) L 02/21/24 21:58 Carbon Dioxide 18 mmol/L (22-29) L 02/21/24 21:58 Anion Gap 18.8 (5-19) 02/21/24 21:58 BUN 7 mg/dL (8-23) L 02/21/24 21:58 Creatinine 0.8 mg/dL (0.7-1.2) 02/21/24 21:58 GFR Calculation Not Reportable 02/21/24 21:58 Glucose 105 mg/dL (65-115) 02/21/24 21:58 Calculated Osmolality 262 mOsm/kg (285-295) L 02/21/24 21:58 Calcium 8.3 mg/dL (8.5-10.5) L 02/21/24 21:58 Total Bilirubin 0.7 mg/dL (0.15-1.2) 02/21/24 21:58 AST 39 U/L (0-40) 02/21/24 21:58 ALT 21 U/L (0-41) 02/21/24 21:58 Alkaline Phosphatase 67 U/L (40-130) 02/21/24 21:58 Troponin T Baseline 16 ng/L (0-15) H 02/21/24 21:58 Troponin T 120 Minute 13.43 ng/L (0-15) 02/21/24 23:54 Delta Troponin T -2.57 ABS# (0-10) L 02/21/24 23:54 NT-Pro-B Natriuret Pep 494 pg/mL (0-125) H 02/21/24 21:58 Total Protein 6.4 g/dL (6.6-8.7) L 02/21/24 21:58 Albumin 4.0 g/dL (3.5-5.2) 02/21/24 21:58 Globulin 2.4 g/dL (1.3-4.6) 02/21/24 21:58 Vitamin B12 188 pg/mL (232-1245) L 02/21/24 23:54 25-OH Vitamin D Total 12 ng/mL (30-100) L 02/21/24 23:54 TSH 3.68 uIU/mL (0.27-4.20) 02/21/24 23:54 PTH Intact 77.8 pg/mL (15-65) H 02/21/24 23:54 Calcium (PTH Intact) 8.1 mg/dL (8.5-10.5) L 02/21/24 23:54 Ethyl Alcohol 150 mg/dL (0-10) H 02/21/24 23:54 All radiology interpretation(s) finalized by discharge EKG Data EKG 1: Interpretation: Initial twelve-lead EKG obtained at 2200 demonstrates atrial paced rhythm with a ventricular rate of 61 bpm, TX interval 205, QRS duration 146 QT 476 QTc 479 at present there is no ST elevation or depression to demonstrate acute ischemia or infarction. EKG 2: Interpretation: Twelve-lead EKG obtained at 2351 again demonstrates an atrial paced cardiac rhythm with a ventricular rate of 60 bpm, TX interval 212, QRS duration 143 QT 473 QTc [address] elevation or depression at present Discharge Plan Discharge Patient Disposition: Admitted As Inpatient Admit Provider: Dallas Uribe Clinical Impression: Syncope and collapse, Ventricular tachycardia by electrocardiogram, Acute hyponatremia Condition: Stable Coding Level of Care Code ED Sales Utility Representative for Kesha Samano
[2024-02-21 22:14] LABS: Basophils % 0.6 %; Eosinophils # 0.2 10^3/uL (0.0-0.8); Eosinophils % 3.2 %; Hematocrit 44.7 % (37-53); Lymphocytes # 2.6 10^3/uL (0.8-4.8); Lymphocytes % 36.5 %; Mean Corpuscular HGB Conc 34.5 g/dL (30-55); Mean Corpuscular Hemoglobin 32.1 pg (27-33); Mean Corpuscular Volume 93.1 fl (82-101); Mean Platelet Volume 8.8 fL (7.4-10.4); Monocytes # 0.5 10^3/uL (0.2-0.9); Monocytes % 7.1 %; Neutrophils # 3.75 10^3/uL (1.8-7.7); Neutrophils % 52.2 %; Nucleated Red Blood Cells % 0 %; Platelet Count 149 10^3/cmm (157-399); Red Cell Distribution Width 13.5 % (12.1-15.1); White Blood Count 7.18 10^3/uL (3.29-11.43)
[2024-02-21 22:24] LABS: INR 1.08 (0.8-1.2)
[2024-02-21 22:30] VITALS: BP 123/63; PULSE 60; RESP 16; O2SAT 92
[2024-02-21 22:36] LABS: Troponin(5th) Baseline 16 ng/L (0-15)
[2024-02-21 22:43] LABS: Alanine Aminotransferase 21 U/L (0-41); Alkaline Phosphatase 67 U/L (40-130); Blood Urea Nitrogen 7 mg/dL (8-23); Calcium 8.3 mg/dL (8.5-10.5); Carbon Dioxide 18 mmol/L (22-29); Chloride 95 mmol/L (98-107); Globulin 2.4 g/dL (1.3-4.6); Glucose 105 mg/dL (65-115); NT Pro B Type Natriuretic Pept 494 pg/mL (0-125); Osmolality Calculated 262 mOsm/kg (285-295); Sodium 127 mmol/L (136-145); Total Bilirubin 0.7 mg/dL (0.15-1.2); Total Protein 6.4 g/dL (6.6-8.7)
[2024-02-21 22:45] VITALS: BP 122/63; PULSE 60; RESP 18; O2SAT 95
[2024-02-21 22:46] LABS: Anion Gap 18.8 (5-19); Aspartate Amino Transferase 39 U/L (0-40); Potassium 4.8 mmol/L (3.5-5.1)
[2024-02-21 23:00] VITALS: BP 125/65; PULSE 60; RESP 20; O2SAT 97
[2024-02-21 23:30] VITALS: BP 141/68; PULSE 60; RESP 14; O2SAT 96
[2024-02-21 23:45] VITALS: BP 100/77; PULSE 61; RESP 16; O2SAT 97
--- NOTE | 2024-02-21 23:54 | ECG_ITS ---
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 Measurements Intervals [place] Rate: 60 P: 142 MO: 212 QRS: -61 QRSD: 143 T: 23 QT: 473 QTc: 473 Interpretive Statements ELECTRONIC ATRIAL PACEMAKER RIGHT BUNDLE BRANCH BLOCK [120+ ms QRS DURATION, UPRIGHT V1, 40+ ms S IN I/aVL/V4/V5/V6] LEFT ANTERIOR FASCICULAR BLOCK [QRS AXIS <= -45, QR IN I, RS IN II] POSSIBLE SEPTAL MYOCARDIAL INFARCTION , PROBABLY OLD [30 ms Q WAVE IN V1/V2] Compared to ECG 02/21/2024 22:00:39 No significant changes Electronically Signed On 02-23-2024 0:02:13 CDT by Wenceslao Redmond M.D. [email or web address] [email or web address].[email or web address]/store/OM/[id number]
[2024-02-22] VITALS (44 sets, daily range): BP systolic 88–188; BP diastolic 56–117; PULSE 60–80; RESP 10–33; TEMP 36.4–36.8; O2SAT 93–98; BMI 28.5
--- NOTE | 2024-02-22 | PC.NURSE ---
Nurse educated pt and family not to drink or eat anything for MD approval upon awaiting results. Nurse was notified by registration that pt was drinking coffee, MD to bedside. Pt reeducated on not eating or drinking.
[2024-02-22 00:16] LABS: Troponin 5 2HR 13.43 ng/L (0-15)
[2024-02-22 00:19] LABS: Troponin 5 2HR Delta -2.57 ABS# (0-10)
--- NOTE | 2024-02-22 00:28 | PC.NURSE ---
[employer] called for pacemaker to be interrogated. The rep is to call back when they are available to come and do it.
--- NOTE | 2024-02-22 01:11 | P.HP_ITS ---
Providers/Chief Complaint 2 Chief Complaint: CP History of Present Illness Rahul Carl is a 73 year old male with history of recurrent syncopal events, coronary disease, status post pacemaker placement, presenting today with chief complaint of 2 syncopal events at home. In the past patient was started on midodrine as well for orthostatic hypotension, review of records reveal he has history of grade 1 diastolic dysfunction, carotid duplex without carotid artery stenosis, patient is endorsing drinking alcohol up to 20 beers a day. Diagnostic workup in the ER revealed hyponatremia, pacemaker interrogation requested, cardiology consulted, he will stay on fluid restriction in ICU EKG showing paced rhythm up to 60s, EMS reported that when they received the patient heart rate was low and there was no pacemaker spikes and there was concern that he is not getting captured beats Patient is stating that around 8 PM he was going towards his bedroom when he experienced for syncopal event, he blacked out for few seconds, he landed on a nightstand, after an hour he had another episode while he was currently or just himself in the bed, he blacked out again for a few seconds 30 minutes after he start experiencing chest pain on left side he is able to pinpoint towards his left chest pain area which he is describing as pressure, chest pain is not intense at the time of my evaluation, no recent fever, diarrhea shortness of breath, patient is stating that pacemaker was placed at [facility] about 2- 1/2 years ago secondary to recurrent syncopal events, he is stating that his data abstractor at 1 point told him to get his pacemaker removed because he is not dependent on it and etiology was still unclear, as per the patient placement was placed out of desperate measure when his syncopal events were not getting better. He is planning to move to [facility] in summer soon. Right now he is waiting for his granddaughter graduate from high school. Troponin is 16, second troponin is 13 with negative delta BNP 494 Clinically does not look fluid overloaded I am requesting D-dimer, Review of Systems 2 Const: Denies: fever(s) Eyes: Denies: change in vision ENMT: Denies: throat pain Card: Reports: chest pain Resp: Denies: dyspnea GI: Denies: abdominal pain : Denies: flank pain Musc: Reports: back pain Skin/Breast: Denies: rash Neuro: Denies: headache(s) or sensory changes Medications/Allergies Home Medications Medication Instructions Recorded Confirmed Last Taken Type acyclovir 400 mg tablet 400 mg PO EVERY OTHER DAY 08/13/22 08/13/22 08/11/22 History aspirin 81 mg tablet,delayed 81 mg PO DAILY 08/13/22 08/13/22 08/11/22 History release atorvastatin 40 mg tablet 20 mg PO DAILY 08/13/22 08/13/22 08/11/22 History meclizine 25 mg tablet 25 mg PO TID PRN Dizziness 08/13/22 08/13/22 Unknown History nitroglycerin 0.4 mg sublingual 0.4 mg sublingual Q5M PRN Chest 08/13/22 08/13/22 Unknown History tablet (Nitrostat) Pain omeprazole 40 mg capsule,delayed 40 mg PO DAILY 08/13/22 08/13/22 08/11/22 History release oxycodone-acetaminophen 10 mg-325 1 tab PO Q4H PRN Pain 08/13/22 08/13/22 08/11/22 History mg tablet midodrine 5 mg tablet 5 mg PO TID #90 tabs 08/14/22 Unknown Rx miscellaneous medical supply #1 ea 08/14/22 Unknown Rx (Blood Pressure Cuff) Allergies Allergy/AdvReac Type Severity Reaction Status Date / Time No Known Allergies Allergy Verified 02/21/24 22:04 PFSH Acute 2 PFSH: Medical History (Updated 02/22/24 @ 01:55 by Dallas Uribe MD) Atypical chest pain HTN (hypertension) Pneumothorax Pain in rib Multiple fractures of ribs of right side CAD (coronary artery disease) Cervical spine fracture At 17 yo, had c-spine surgery Rib fracture Surgical History Stented coronary artery H/O hand surgery S/P placement of cardiac pacemaker No pertinent past surgical history Family History Brother Cancer Social History Smoking and tobacco/nicotine status: never used tobacco/nicotine Alcohol intake: never Substance/Drug Use: never Vitals/I&O/Wt Last Vital Signs Temp 98.0 F 02/21/24 21:55 Pulse 61 02/21/24 21:55 Resp 18 02/21/24 21:55 BP 133/78 02/21/24 21:55 Pulse Ox 95 02/21/24 21:55 O2 Del Method Room Air 02/21/24 21:55 Weight last 48 hrs Weight 79.379 kg Physical Exam 2 Narrative: Euvolemic GCS 15 Pleasant cooperative Nonfocal neuroexam No active chest pain Hemodynamically stable Heart rate 60 Afebrile Currently on room air Pleasant and cooperative Data 02/21/24 21:58 02/21/24 21:58 A&P Assessment and plan (1) Syncope and collapse: (2) Unstable angina: (3) D-dimer, elevated: Plan Syncope and collapse Unstable angina Negative delta troponin EKG showing paced rhythm Pacemaker interrogation requested Dr. Redmond consulted Echo requested Continue aspirin and atorvastatin History of coronary disease No active chest pain at the time of evaluation Patient is able to pinpoint versus chest pain area however describes it as pressure-like sensation Abnormal D-dimer will request CTA chest rule out PE Acute on chronic hyponatremia beer protomania Alcohol consumption 20 beers daily Fluid restriction 1000 mL/day CIWA protocol Recurrent syncopal events Check B12 and TSH Pacemaker was placed 2-1/2 years ago at [facility] Planning to move to [place] in summer Diastolic CHF without acute exacerbation BNP is high however clinic does not look fluid overloaded Hold off on Lasix for now Cardiac diet Full code DVT prophylaxis added Attestations 2 Medical Necessity Statement*: More than 2 midnights anticipated will need ICU admission for hyponatremia, syncopal event and chest pain management Diagnoses Syncope and collapse R55 Unstable angina I20.0 D-dimer, elevated R79.89
--- NOTE | 2024-02-22 01:22 | PC.NURSE ---
erin barlow called and is on his way here. estimated about 2 hours before arrival
[2024-02-22 01:26] LABS: D Dimer 1.48 ug/mLFEU (0-0.59)
--- NOTE | 2024-02-22 01:49 | CTR_ITS ---
PROCEDURE INFORMATION: Exam: CTA Chest With Contrast Exam date and time: 02/22/2024 2:13 AM Age: 73 years old Clinical indication: Angina; Prior surgery; Surgery date: 6+ months; Surgery type: Stents, pacemaker; Additional info: Syncope TECHNIQUE: Imaging protocol: Computed tomographic angiography of the chest with contrast. Exam focused on the arteries. 3D rendering (Not supervised by radiologist): MIP and/or 3D reconstructed images were created by the technologist. Radiation optimization: All CT scans at this facility use at least one of these dose optimization techniques: automated exposure control; mA and/or kV adjustment per patient size (includes targeted exams where dose is matched to clinical indication); or iterative reconstruction. Contrast material: OMNI 350; Contrast volume: 75 ml; Contrast route: INTRAVENOUS (IV); COMPARISON: CT chest [facility] [id number] 08/11/2022 4:06 PM RADIATION DOSE METRICS: Total DLP (mGy-cm): 395.24 FINDINGS: Tubes, catheters and devices: Left chest wall pacemaker device with intact catheters terminating along the right atrium and right ventricle. Pulmonary arteries: No luminal filling defect to suggest pulmonary embolus. Aorta: Unchanged prominence of the aortic root. Lungs: Scattered atelectasis and scarring. Pleural spaces: Scattered pleural thickening with calcifications. Sequela of granulomatous disease. Heart: Unremarkable. No cardiomegaly. No pericardial effusion. Coronary arteries: Severe calcified atherosclerotic disease of the coronary vasculature. Lymph nodes: Unremarkable. No enlarged lymph nodes. Diaphragm: Unchanged appearance hiatal hernia, predominantly fat containing. Bones/joints: Scattered moderate degenerative changes of the visualized osseous structures. Healed right rib fractures. Severe calcified atherosclerotic disease of the visualized aorta and its major branches. Soft tissues: Unremarkable. Other findings: Stable scattered micronodularity. CT/CT angio chest PE protcl [id number] IMPRESSION: 1. No pulmonary embolus. 2. No acute intrathoracic findings. 3. Pleural thickening with scattered calcifications, correlate with occupational exposures. 4. Additional nonacute findings as above.
[2024-02-22] MEDS: iohexol 350 mg/mL 500 mL Btl (per mL) IV (02:16)
--- NOTE | 2024-02-22 02:19 | USCV_ITS ---
Rahul Carl Age: 73 Gender: M : 1950 Exam Date: 02/22/2024 03:17 Ordering Phys: Dallas Uribe MD Technologist: RAMSES [place] [facility] [place]ication: c/o syncope. History of pacer 2020, History of CAD, s/p cardiac stenting. BP: 138 / 77 HR: 60 Rhythm: Sinus Technical Quality: Adequate MEASUREMENTS (Male / Female) Normal Values 2D ECHO LV Diastolic Diameter PLAX 5.1 cm 4.2 - 5.9 / 3.9 - 5.3 cm IVS Diastolic Thickness 1.7 cm 0.6 - 1.0 / 0.6 - 0.9 cm IVS Systolic Thickness 2.3 cm LVPW Diastolic Thickness 1.3 cm 0.6 - 1.0 / 0.6 - 0.9 cm LVPW Systolic Thickness 2.0 cm LVOT Diameter 2.0 cm LV Ejection Fraction 2D Teich 71.8 % LV Ejection Fraction MOD 2C 63.0 % LV Ejection Fraction 2C AL 65.1 % LA Diameter 4.2 cm Aorta at Sinotubular Diameter 3.2 cm IVC Diameter 1.3 cm M-MODE LA Ao Ratio MM 1.3 AV Cusp Separation MM 1.7 cm DOPPLER AV Peak Velocity 109.0 cm/s LVOT Peak Velocity 78.0 cm/s AV Area Cont Eq vti 3.0 cm squared AV Area Cont Eq pk 2.3 cm squared MV Peak Velocity 100.0 cm/s MV Area PHT 2.3 cm squared Mitral E to A Ratio 0.7 TV Peak Velocity 226.0 cm/s TR Peak Velocity 226.0 cm/s TR Peak Gradient 20.4 mmHg TV Peak E Velocity 34.0 cm/s Right Atrial Pressure 3.0 mmHg Pulmonary Artery Systolic Pressu 23.4 mmHg PV Peak Velocity 104.0 cm/s FINDINGS Left Ventricle Normal left ventricular size and systolic function, EF 63% . No regional wall motion abnormalities. Mild left ventricular hypertrophy. Grade I/IV diastolic dysfunction (abnormal relaxation filling pattern), normal to mildly elevated filling pressures. Right Ventricle Catheter/pacemaker wire in the right ventricular cavity. Right Atrium Catheter/pacemaker wire in the right atrial cavity. Left Atrium Mildly increased left atrial size. Mitral Valve Trace mitral valve regurgitation. Aortic Valve Thickened aortic valve. Mild aortic valve calcification. Tricuspid Valve Trace tricuspid valve regurgitation. Estimated pulmonary artery peak systolic pressure 23 mm Hg. Pulmonic Valve Pulmonic valve not well visualized. Pericardium No pericardial effusion. Aorta Normal ascending aorta dimension. IVC The inferior vena cava appears normal. CONCLUSIONS Normal left ventricular size and systolic function, EF 63% . No regional wall motion abnormalities. Mild left ventricular hypertrophy. Grade I/IV diastolic dysfunction (abnormal relaxation filling pattern), normal to mildly elevated filling pressures. Thickened aortic valve. Mild aortic valve calcification. Trace mitral valve regurgitation. Trace tricuspid valve regurgitation. Estimated pulmonary artery peak systolic pressure 23 mm Hg. There is no pericardial effusion. There are no intracardiac masses. Compared to the study from 08/13/2022, there may not be significant change Dr Wenceslao Redmond MD [facility] (Electronically Signed) Final Date: 22 February 2024 09:58 S
--- NOTE | 2024-02-22 02:22 | PC.NURSE ---
Chest Pain: Pt states 6/10 pain. When asked to elaborate, pt states, its tolerable, but I'd rather not have it .
[2024-02-22 02:27] LABS: Calcium 8.1 mg/dL (8.5-10.5)
[2024-02-22 02:28] LABS: Alcohol Level 150 mg/dL (0-10)
[2024-02-22 02:33] LABS: Parathyroid Hormone 77.8 pg/mL (15-65)
--- NOTE | 2024-02-22 02:35 | PC.NURSE ---
Arrival to ICU 5: Pt arrived to ICU 5 @0219. Pt refused full body skin assessment and stated he had no wounds. Pt was educated on fall risk status, pt was not agreeable to this, stated I'm just fine to walk and use the bathroom on my own . Pt did agree to sit down if he felt dizzy or lightheaded.
[2024-02-22 02:43] LABS: 25 Hydroxy Vitamin D 12 ng/mL (30-100)
[2024-02-22] MEDS: morphine IR 15 mg Tablet PO ×3 (03:02→14:21)
[2024-02-22 03:04] LABS: Thyroid Stimulating Hormone 3.68 uIU/mL (0.27-4.20); Vitamin B12 188 pg/mL (232-1245)
[2024-02-22 04:38] LABS: Basophils % 0.6 %; Eosinophils # 0.2 10^3/uL (0.0-0.8); Hematocrit 44.2 % (37-53); Lymphocytes # 1.7 10^3/uL (0.8-4.8); Lymphocytes % 34.8 %; Mean Corpuscular HGB Conc 34.2 g/dL (30-55); Mean Corpuscular Hemoglobin 32.3 pg (27-33); Mean Corpuscular Volume 94.6 fl (82-101); Mean Platelet Volume 8.3 fL (7.4-10.4); Monocytes # 0.4 10^3/uL (0.2-0.9); Monocytes % 7.7 %; Neutrophils # 2.62 10^3/uL (1.8-7.7); Neutrophils % 53.3 %; Nucleated Red Blood Cells % 0 %; Platelet Count 116 10^3/cmm (157-399); Red Blood Count 4.67 10^6/uL (3.85-5.65); Red Cell Distribution Width 13.5 % (12.1-15.1); White Blood Count 4.92 10^3/uL (3.29-11.43)
[2024-02-22 05:02] LABS: Anion Gap 17.2 (5-19); Blood Urea Nitrogen 7 mg/dL (8-23); Calcium 8.4 mg/dL (8.5-10.5); Carbon Dioxide 20 mmol/L (22-29); Chloride 101 mmol/L (98-107); Creatinine Clr Calc Pharmacy 86.1305; Glucose 84 mg/dL (65-115); Osmolality Calculated 275 mOsm/kg (285-295); Phosphorus 3.5 mg/dL (2.5-4.5); Potassium 4.2 mmol/L (3.5-5.1); Sodium 134 mmol/L (136-145); Troponin 5 6HR 12.24 ng/L (0-15)
[2024-02-22 05:03] LABS: Troponin 5 6HR Delta -3.76 ng/L (0-12)
[2024-02-22] MEDS: acetaminophen 500 mg Tablet PO (07:39)
[2024-02-22] MEDS: folic acid 1 mg Tablet PO (08:26)
[2024-02-22] MEDS: multivitamin therapeutic Tablet 1 TAB PO (08:26)
[2024-02-22] MEDS: atorvastatin 40 mg Tablet 20 MG PO (08:26)
[2024-02-22] MEDS: aspirin 81 mg EC Tablet PO (08:26)
[2024-02-22] MEDS: calcium carb-vit d 600mg/400unit 1 Tablet 1 EACH PO ×2 (08:26→17:36)
[2024-02-22] MEDS: thiamine 100 mg Tablet PO (08:26)
[2024-02-22] MEDS: sennosides-docusate Tablet 1 TAB PO (08:26)
[2024-02-22] MEDS: pantoprazole DR 40 mg Tablet PO (08:26)
[2024-02-22] MEDS: enoxaparin 40 mg/0.4 mL Syringe SUBCUT (08:27)
--- NOTE | 2024-02-22 08:46 | PM.CONSULT ---
Providers/Reason For Consult Consulting Physician/Specialty*: JOSH Redmond MD/cardiology Reason for Consult*: Patient with SVT Requesting Physician: Dr. Uribe Attending Physician: Dallas Uribe MD History of Present Illness History of Present Illness Rhaul Carl is a 73 year old male with a history of atherosclerotic heart disease and syncopal episodes was initially presented to the emergency room of the [facility] with the complaints of recurrent episodes of syncope. The ambulance service thought that the pacemaker may be working. Patient is transferred to our facility for further evaluation and management. This patient is known to have recurrent episodes of syncope since age of 19. Apparently he had extensive evaluations at the [facility] in [place] and also in the [facility] in the past. According to the patient, nobody could identify the etiology of these episodes. He has a questionable history of orthostatic hypotension. He had a permanent pacer implantation 4 years ago thinking that this might be helpful. But according the patient, the frequency of the spells have not changed after the pacemaker insertion. Patient was found to have features of pacemaker mediated tachycardia with the device interrogation. The pacemaker was reprogrammed earlier this morning for this. This patient also has a history of atherosclerotic heart diseas. He had a PCI of one of the arteries, approximately 8 years ago. He had a repeat PCI 3 to 4 years after this. Details of this are not available. Patient is being followed by a rotary drill operator at the [facility] in [place]. Yesterday, he was at home walking down the hallway. All of a sudden, without a warning, he passed out to the floor. Few minutes later, he had the same spell in the bedroom. He had any chest pain or palpitation prior to this episode. Following the fall, he has been having pain in the left side of the chest. He seems to think that he might have hit the floor on the left side. The pain is constant with some worsening with deep inspiration. No other specific complaints at this time. On the telemetry, the rhythm is normal sinus/atrial paced rhythm. The patient drinks beer every day-heavy drinking, around 20 a day Review of Systems Narrative: CONSTITUTIONAL: No fever or chills. EYES: No blurring of vision or other visual disturbances lately. ENT: No hoarseness of voice, auditory disturbances or sore throat. CARDIOVASCULAR: As mentioned above. RESPIRATORY: No significant cough. GASTROINTESTINAL: No hematemesis or melena. GENITOURINARY: No dysuria or hematuria. INTEGUMENTARY: No skin rashes or history of skin cancer. NEURO: No transient ischemic attacks or amaurosis. PSYCHIATRIC: No history of psychosis or major depression. HEMATOLOGIC: No bleeding disorders or significant anemia. ENDOCRINE: No history of polyuria or polydipsia. MUSCULOSKELETAL: No recent joint pain or swelling. ALLERGY/IMMUNOLOGY: As mentioned above. Medications/Allergies Home Medications Medication Instructions Recorded Confirmed Last Taken Type acyclovir 400 mg tablet 400 mg PO EVERY OTHER DAY 08/13/22 02/22/24 08/11/22 History aspirin 81 mg tablet,delayed 81 mg PO DAILY 08/13/22 02/22/24 08/11/22 History release atorvastatin 40 mg tablet 20 mg PO DAILY 08/13/22 02/22/24 08/11/22 History meclizine 25 mg tablet 25 mg PO TID PRN Dizziness 08/13/22 02/22/24 Unknown History nitroglycerin 0.4 mg sublingual 0.4 mg sublingual Q5M PRN Chest 08/13/22 02/22/24 Unknown History tablet (Nitrostat) Pain omeprazole 40 mg capsule,delayed 40 mg PO DAILY 08/13/22 02/22/24 08/11/22 History release oxycodone-acetaminophen 10 mg-325 1 tab PO Q4H PRN Pain 08/13/22 02/22/24 08/11/22 History mg tablet midodrine 5 mg tablet 5 mg PO TID #90 tabs 08/14/22 02/22/24 Unknown Rx miscellaneous medical supply #1 ea 08/14/22 02/22/24 Unknown Rx (Blood Pressure Cuff) folic acid 1 mg tablet 1 mg PO DAILY #90 tabs 02/23/24 Unknown Rx losartan 25 mg tablet 25 mg PO DAILY PRN BP >160/90 #30 02/23/24 Unknown Rx tabs multivitamin with folic acid 400 1 tab PO DAILY #90 tabs 02/23/24 Unknown Rx mcg tablet (Thera) thiamine mononitrate (vit B1) 100 100 mg PO DAILY #90 tabs 02/23/24 Unknown Rx mg tablet (Vitamin B-1 (mononitrate)) Allergies Allergy/AdvReac Type Severity Reaction Status Date / Time codeine Allergy ADR-Nausea Verified 02/22/24 09:04 Current Medications Generic Name Dose Route Start Last Admin Trade Name Vernonq PRN Reason Stop Dose Admin Acetaminophen 500 mg 02/22/24 02:19 02/22/24 07:39 Acetaminophen 500 Mg Tablet PO 500 mg Q4H PRN Administration fever Aspirin 81 mg 02/22/24 09:00 02/22/24 08:26 Aspirin 81 Mg Ec Tablet PO 81 mg DAILY ESPERANZA Administration Atorvastatin Calcium 20 mg 02/22/24 09:00 02/22/24 08:26 Atorvastatin 40 Mg Tablet PO 20 mg DAILY ESPERANZA Administration Calcium Carbonate 1 each 02/22/24 09:00 02/22/24 08:26 Calcium Carb-Vit D 600mg/400unit 1 Tablet PO 1 each BID ESPERANZA Administration Enoxaparin Sodium 40 mg 02/22/24 09:00 02/22/24 08:27 Enoxaparin 40 Mg/0.4 Ml Syringe SUBCUT 40 mg Q24H ESPERANZA Administration Folic Acid 1 mg 02/22/24 09:00 02/22/24 08:26 Folic Acid 1 Mg Tablet PO 1 mg DAILY ESPERANZA Administration Morphine Sulfate 15 mg 02/22/24 02:19 02/22/24 08:25 Morphine Ir 15 Mg Tablet PO 15 mg Q6H PRN Administration MODERATE PAIN Multivitamins Therapeutic 1 tab 02/22/24 09:00 02/22/24 08:26 Multivitamin Therapeutic Tablet PO 1 tab DAILY ESPERANZA Administration Pantoprazole Sodium 40 mg 02/22/24 09:00 02/22/24 08:[address] 40 Mg Tablet PO 40 mg DAILY ESPERANZA Administration Senna/Docusate Sodium 1 tab 02/22/24 09:00 02/22/24 08:26 Sennosides-Docusate Tablet PO 1 tab DAILY ESPERANZA Administration Thiamine Mononitrate 100 mg 02/22/24 09:00 02/22/24 08:26 Thiamine 100 Mg Tablet PO 100 mg DAILY ESPERANZA Administration PFSH Acute PFSH: Medical History Atypical chest pain HTN (hypertension) Pneumothorax Pain in rib Multiple fractures of ribs of right side CAD (coronary artery disease) Cervical spine fracture At 17 yo, had c-spine surgery Rib fracture Surgical History Stented coronary artery H/O hand surgery S/P placement of cardiac pacemaker No pertinent past surgical history Family History Brother Cancer Social History Smoking and tobacco/nicotine status: never used tobacco/nicotine Alcohol intake: never Substance/Drug Use: never Vitals/I&O/Wt Last Vital Signs Temp 98.2 F 02/22/24 08:00 Pulse 80 02/22/24 08:30 Resp 20 H 02/22/24 08:30 BP 108/66 02/22/24 08:30 Pulse Ox 95 02/22/24 08:30 O2 Del Method Room Air 02/22/24 08:00 02/21/24 02/22/24 02/22/24 22:59 06:59 14:59 Output Total 1375 / 1375 Balance -1375 / -1375 Weight last 48 hrs Weight 183 lb 7 oz Weight 188 lb 1.6 oz Weight 175 lb Physical Exam Narrative: GENERAL: The patient is alert and oriented times three. Not in any acute distress. HEENT: No significant pallor, icterus or lymphadenopathy.Oral cavity: There are no mucous membrane lesions. NECK: Trachea appears to be central. No masses noted. No JVD or thyromegaly appreciated. RESPIRATORY: Chest is symmetrical. No intercostals muscle retraction or any accessory muscle activation. There is chest wall tenderness on the left inframammary region. Breath sounds are heard bilaterally. No rales or rhonchi heard. No evidence of any consolidation. BREASTS: Deferred. HEART: The heart sounds are normal. No S3 or S4. No significant murmurs. No pericardial rub ABDOMEN: No vessel pulsations or distention. No tenderness. No organomegaly appreciated. Bowel sounds are normally heard. : Deferred. RECTAL: Deferred. LYMPHATIC: No lymphadenopathy noted in the neck. EXTREMITIES: No edema or cyanosis. No clubbing. MUSCULOSKELETAL: No acute joint deformities or swelling SKIN: There are no significant rashes or ecchymosis NEUROPSYCHIATRIC: The patient is alert and oriented x3. Appears to be in a good mood. No tremors or rigidity noted. Data 02/23/24 04:43 02/23/24 04:43 Other Labs: Laboratory Last Values WBC 4.92 10^3/uL (3.29-11.43) 02/22/24 04:30 RBC 4.67 10^6/uL (3.85-5.65) 02/22/24 04:30 Hgb 15.10 g/dL (11.27-16.99) 02/22/24 04:30 Hct 44.2 % (37-53) 02/22/24 04:30 MCV 94.6 fl (82-101) 02/22/24 04:30 MCH 32.3 pg (27-33) 02/22/24 04:30 MCHC 34.2 g/dL (30-55) 02/22/24 04:30 RDW 13.5 % (12.1-15.1) 02/22/24 04:30 Plt Count 116 10^3/cmm (157-399) L 02/22/24 04:30 MPV 8.3 fL (7.4-10.4) 02/22/24 04:30 Neut % (Auto) 53.3 % 02/22/24 04:30 Lymph % (Auto) 34.8 % 02/22/24 04:30 [place] % (Auto) 7.7 % 02/22/24 04:30 Eos % (Auto) 3.0 % 02/22/24 04:30 Baso % (Auto) 0.6 % 02/22/24 04:30 Neut # (Auto) 2.62 10^3/uL (1.8-7.7) 02/22/24 04:30 Lymph # (Auto) 1.7 10^3/uL (0.8-4.8) 02/22/24 04:30 [place] # (Auto) 0.4 10^3/uL (0.2-0.9) 02/22/24 04:30 Eos # (Auto) 0.2 10^3/uL (0.0-0.8) 02/22/24 04:30 Baso # (Auto) 0.0 10^3/uL (0.0-0.1) 02/22/24 04:30 Nucleated RBC % (auto) 0 % 02/22/24 04:30 Nucleated RBCs # 0.0 /100WBC 02/22/24 04:30 PT 14.40 SECONDS (12.1-14.9) 02/21/24 21:58 INR 1.08 (0.8-1.2) 02/21/24 21:58 D-Dimer 1.48 ug/mLFEU (0-0.59) H 02/21/24 22:08 Sodium 134 mmol/L (136-145) L 02/22/24 04:30 Potassium 4.2 mmol/L (3.5-5.1) 02/22/24 04:30 Chloride 101 mmol/L (98-107) 02/22/24 04:30 Carbon Dioxide 20 mmol/L (22-29) L 02/22/24 04:30 Anion Gap 17.2 (5-19) 02/22/24 04:30 BUN 7 mg/dL (8-23) L 02/22/24 04:30 Creatinine 0.6 mg/dL (0.7-1.2) L 02/22/24 04:30 GFR Calculation Not Reportable 02/22/24 04:30 Glucose 84 mg/dL (65-115) 02/22/24 04:30 Calculated Osmolality 275 mOsm/kg (285-295) L 02/22/24 04:30 Calcium 8.4 mg/dL (8.5-10.5) L 02/22/24 04:30 Phosphorus 3.5 mg/dL (2.5-4.5) 02/22/24 04:30 Magnesium 2.0 mg/dL (1.7-2.3) 02/22/24 04:30 Total Bilirubin 0.7 mg/dL (0.15-1.2) 02/21/24 21:58 AST 39 U/L (0-40) 02/21/24 21:58 ALT 21 U/L (0-41) 02/21/24 21:58 Alkaline Phosphatase 67 U/L (40-130) 02/21/24 21:58 Troponin T Baseline 16 ng/L (0-15) H 02/21/24 21:58 Troponin T 120 Minute 13.43 ng/L (0-15) 02/21/24 23:54 Delta Troponin T -2.57 ABS# (0-10) L 02/21/24 23:54 Troponin T Hi Sens 6Hr 12.24 ng/L (0-15) 02/22/24 04:30 Troponin T Hi Sens 6Hr Delta -3.76 ng/L (0-12) L 02/22/24 04:30 NT-Pro-B Natriuret Pep 494 pg/mL (0-125) H 02/21/24 21:58 Total Protein 6.4 g/dL (6.6-8.7) L 02/21/24 21:58 Albumin 4.0 g/dL (3.5-5.2) 02/21/24 21:58 Globulin 2.4 g/dL (1.3-4.6) 02/21/24 21:58 Vitamin B12 188 pg/mL (232-1245) L 02/21/24 23:54 25-OH Vitamin D Total 12 ng/mL (30-100) L 02/21/24 23:54 TSH 3.68 uIU/mL (0.27-4.20) 02/21/24 23:54 PTH Intact 77.8 pg/mL (15-65) H 02/21/24 23:54 Calcium (PTH Intact) 8.1 mg/dL (8.5-10.5) L 02/21/24 23:54 Ethyl Alcohol 150 mg/dL (0-10) H 02/21/24 23:54 EKG 1: My Interpretation: Sinus rhythm with intermittent demand a paced rhythm. Right bundle branch block. Left anterior fascicular block. A&P Assessment and plan (1) Recurrent syncope: The etiology of the recurrent syncope is not clear. It is possible that the patient may have a vasodepressive type of syncope. (2) Pacemaker-mediated tachycardia: The pacemaker was reprogrammed for the [facility]. Currently he seems to be staying in sinus rhythm (3) Atherosclerotic heart disease of [place] coronary artery with other forms of angina pectoris: Patient chest pain is somewhat atypical. He has a musculoskeletal component for the pain. It might be appropriate to do a Myocardial perfusion imaging to evaluate for any underlying coronary ischemia . (4) Chest pain: The patient chest pain most likely is musculoskeletal. Because of the history of the syncope, may be appropriate to go ahead and do a an exercise/sestamibi/sestamibi stress test to better evaluate the coronary status. Qualifiers: Chest pain type: unspecified Qualified Code(s): R07.9 - Chest pain, unspecified Plan Patient may be closely monitored on telemetry. Based on the results of the above tests and the patient's clinical progress, further recommendations will be made. Thank you for the opportunity to evaluate this patient and make these recommendations Consult Attestations Medical Necessity Statement: Patient requires continued hospital stay for close monitoring and further management Coding Level of Care Code 26460 Diagnoses Recurrent syncope R55 Pacemaker-mediated tachycardia I49.9 Atherosclerotic heart disease of [place] coronary artery with other forms of angina pectoris I25.118 Chest pain, unspecified type R07.9 Chest pain type: unspecified
[2024-02-22] MEDS: amlodipine 5 mg Tablet PO (10:54)
--- NOTE | 2024-02-22 13:15 | ECG_ITS ---
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 Interpretive Statements NAME OF STUDY: LEXISCAN SESTAMIBI STRESS TEST INDICATION: Chest Pain PROCEDURE: At the baseline, the EKG revealed normal sinus rhythm with a right bundle branch block pattern. Left anterior fascicular block. No acute ST-T changes. The baseline heart was 70 bpm with a blood pressue of 146/76 mm of Hg Lexiscan was infused over a period of 20 seconds. A total of 0.4 milligrams of Lexiscan was infused. The stress phase was continued for a total of 5 minutes. Heart rate at the end of the stress phase was 91 bpm with a blood pressure 149/84 mm of Hg. The EKG at the peak infusion revealed no significant changes. Sestamibi was injected 20 seconds after the Lexiscan infusion. Heart rate at the end of the recovery phase was 87 bpm with a blood pressure of 132/86 mm of Hg. CONCLUSION: 1. No significant EKG changes with the LexiScan infusion 2. No LexiScan induced chest pain or cardiac arrhythmia 3. Normal blood pressure and heart rate response 4. Sestamibi/sestamibi perfusion scan pending; see separate report. Electronically Signed On 02-27-2024 8:41:32 CDT by Wenceslao Redmond M.D. [id number]
--- NOTE | 2024-02-22 14:12 | P.PN_ITS ---
Subjective 2 Subjective: He is doing okay at the moment, other than has been having some sharp chest pain on the left side anterior to mid axillary line in the mid to lower chest. No presyncopal or syncopal symptoms with getting up to the restroom. Blood pressure labile today, decreased down as low as 88/76 this morning after morphine, orthostatics were negative, however, during my visit blood pressure up as high as 190/111. Vitals/I&O/Wt Last Vital Signs Temp 98.2 F 02/22/24 11:30 Pulse 70 02/22/24 11:30 Resp 23 H 02/22/24 11:30 BP 184/88 02/22/24 11:30 Pulse Ox 95 02/22/24 11:30 O2 Del Method Room Air 02/22/24 11:30 02/21/24 02/22/24 02/22/24 22:59 06:59 14:59 Intake Total 200 / 200 Output Total 1375 / 1375 Balance -1375 / -1375 200 / 200 Weight last 48 hrs Weight 83.206 kg Weight 85.321 kg Weight 79.379 kg Physical Exam 2 Narrative: Accompanied by family. Const: COMMON NORMALS: patient oriented x3 and alert GENERAL APPEARANCE: c ooperative ORIENTATION/CONSCIOUSNESS: Yes awake HENMT: COMMON NORMALS: oropharynx normal Neck/C-Spine: COMMON NORMALS: no JVD Resp: COMMON NORMALS: normal respiratory effort and clear to auscultation bilaterally AUSCULTATION: clear to auscultation bilaterally Cardio: COMMON NORMALS: no JVD, regular rhythm, S1 normal heart sound present, S2 normal heart sound present and No murmurs present (Cardio) RHYTHM: regular rhythm HEART SOUNDS: S1 normal heart sound present and S2 normal heart sound present GI: COMMON NORMALS: Normal to inspection, nondistended, normoactive bowel sounds present, Soft to palpation and non-tender PALPATION: Yes Soft to palpation Extremity: COMMON NORMALS: no joint enlargement and no pedal edema Neuro: COMMON NORMALS: patient oriented x3 and moves all extremities S ENSORIUM/ORIENTATION: Yes alert Skin: COMMON NORMALS: no rashes or lesions noted GENERAL SKIN EXAM: no rashes or lesions noted Data 02/22/24 04:30 02/22/24 04:30 A&P Assessment and plan (1) Syncope and collapse: (2) Unstable angina: (3) D-dimer, elevated: Plan Syncope and collapse: Reviewed vitals, CBC, INR, D-dimer, MP, magnesium, phosphorus, troponin series, vitamin D, PTH, calcium, echocardiogram, CTA, cardiology note, discussed with union representative. Discussed with casey saw operator. Troponin series unremarkable, without signs of ischemia, EKG without signs of acute DC on my interpretation, pending cardiology read. He is having some left- sided chest pain but this appears to be musculoskeletal after his fall. CT angiogram without suggestion of PE. He is having labile hypertension, blood pressure as low as 88/76 this morning after receiving morphine, but with fluctuation up as high as 190/111 this afternoon during my visit, then coming down as low as 112/56 very shortly after receiving amlodipine, this afternoon 169/82 and shortly after 135/70. Orthostatics were negative, but he certainly does have quite labile blood pressures. Discussed with him and the family need for close monitoring of blood pressures, as well as does seem to have prodromal symptoms as he feels lightheaded, discussed with him to sit down or lie down immediately without trying to find a place to sit down as that will risk syncope, fall, injury and call for help. He does have a walker at home, recommended considering having his walker with him so he has a place to sit down or at least something to try to help him get down. Discussed close monitoring of blood pressure, discussed consideration of episodic hypertension, pill in the pocket treatment as needed for hypertensive episodes. With amlodipine monitor for risk of orthostatic hypotension. Has had a carotid duplex back in July without carotid stenosis. Monitor on telemetry. He did have some pacemaker related tachycardia, although per discussion with cardiology this was not likely the cause of his syncope. His pacemaker parameters were adjusted. No other abnormality noted on review of p.m. interrogation report. Unstable labile hypertension: Discussed with cardiology, recommendation is for additional treatment and monitoring in the hospital with such large fluctuations. He was given amlodipine. Reassess blood pressure.Will also try to ambulate with supervision around ICU. We will in the meantime transfer to medical surgical floor. Discussed with him abstinence from alcohol due to hypertension and alcohol contributing to elevated blood pressure. Acute on chronic hyponatremia: Improved. Sodium up to 134. Have some mucosal dryness, possibly dehydration, does drink beer, although it is also a diuretic. Will DC fluid restriction. It was more hypovolemic hyponatremia, but will reassess volume status, chemistry. beer protomania EtOH overuse: Reports at least 8-10 beers daily. With him recommendation for abstinence from alcohol. Risk with continued alcohol consumption. Discussed with him assistance consideration may be given to therapeutic intervention, possibly follow-up with rehabilitation, he will let us know in case he is needing assistance. Asked also to further follow-up with primary provider. CIWA protocol, Monitor for withdrawal. Recurrent syncopal events Check B12 and TSH Pacemaker was placed 2-1/2 years ago at [facility] Planning to move to [place] in summer Elevated PTH, vitamin D deficiency. Replace vitamin D. Follow-up with endocrinology. Hypocalcemia: Replace vitamin D, calcium. Diastolic CHF without acute exacerbation BNP is high however clinic does not look fluid overloaded Hold off on Lasix for now Cardiac diet Full code DVT prophylaxis added Attestations 2 Medical Necessity Statement*: Continue admission for optimization of control of uncontrolled/labile hypertension, further monitoring after recurrent syncopal episodes and gentleman with EtOH abuse, risk of withdrawal. Diagnoses Syncope and collapse R55 Unstable angina I20.0 D-dimer, elevated R79.89
--- NOTE | 2024-02-22 15:59 | PC.NURSE ---
Report GIven to [facility] AGUILAR on med surge. transferred to room 276 bed 2. Attempted to notifiy primary contact Sandra Vasquez, but there as no answer. Family was already made aware of Med surge overflow status and liklihood of transfer to med surge.
[2024-02-22] MEDS: LORazepam 2 mg/mL INJ 10 mL MDV IVP (17:59)
[2024-02-23] VITALS (9 sets, daily range): BP systolic 126–179; BP diastolic 76–104; PULSE 60–78; RESP 15–17; TEMP 36.1–36.3; O2SAT 91–98
[2024-02-23 04:58] LABS: Basophils % 0.4 %; Eosinophils # 0.1 10^3/uL (0.0-0.8); Hematocrit 48.2 % (37-53); Lymphocytes # 1.2 10^3/uL (0.8-4.8); Lymphocytes % 23.8 %; Mean Corpuscular HGB Conc 33.4 g/dL (30-55); Mean Corpuscular Hemoglobin 31.9 pg (27-33); Mean Corpuscular Volume 95.6 fl (82-101); Mean Platelet Volume 8.7 fL (7.4-10.4); Monocytes # 0.4 10^3/uL (0.2-0.9); Monocytes % 7.3 %; Neutrophils # 3.33 10^3/uL (1.8-7.7); Neutrophils % 66.1 %; Nucleated Red Blood Cells % 0 %; Platelet Count 119 10^3/cmm (157-399); Red Blood Count 5.04 10^6/uL (3.85-5.65); Red Cell Distribution Width 13.8 % (12.1-15.1); White Blood Count 5.04 10^3/uL (3.29-11.43)
[2024-02-23 05:21] LABS: Alanine Aminotransferase 18 U/L (0-41); Albumin Level 3.6 g/dL (3.5-5.2); Alkaline Phosphatase 75 U/L (40-130); Aspartate Amino Transferase 27 U/L (0-40); Blood Urea Nitrogen 9 mg/dL (8-23); Calcium 8.9 mg/dL (8.5-10.5); Carbon Dioxide 24 mmol/L (22-29); Chloride 103 mmol/L (98-107); Creatinine Clr Calc Pharmacy 85.1611; Globulin 2.7 g/dL (1.3-4.6); Glucose 117 mg/dL (65-115); Osmolality Calculated 280 mOsm/kg (285-295); Sodium 135 mmol/L (136-145); Total Bilirubin 0.9 mg/dL (0.15-1.2); Total Protein 6.3 g/dL (6.6-8.7)
[2024-02-23 05:24] LABS: C Reactive Protein 6.5 mg/L (0.0-4.9)
[2024-02-23] MEDS: regadenoson 0.4 Mg/5 ml Syringe 0.400000000000000022 MG IVP (07:37)
--- NOTE | 2024-02-23 08:00 | NMCV_ITS ---
NM tu perf SPECT r/s* [id number] Rahul Carl Age: 73 Gender: M : 1950 Exam Date: 02/23/2024 06:40 Ordering Phys: Wenceslao Redmond MD ([email or web address]) Technologist: FIONA Mitchell Exam Location: [facility] Indications: CHEST PAIN STRESS TEST Please [facility] IMAGE PROTOCOL Rest/Stress 1 Lexiscan Day Radiopharmaceutical Dose (mCi) Administration Site Administered by Rest: Tc-99m 10.9 IV FIONA De Jesus Sestamibi Stress:Tc-99m 32.8 IV FIONA De Jesus Sestamibi Rest: 23-Feb-2024 60 Discovery 630 Stress: 23-Feb-2024 30 Discovery 630 0.4mg Lexiscan. Images obtained in supine and prone position. SPECT RESULTS Technical Quality: Excellent Raw Data Analysis: Normal Image Corrections: No attenuation or motion correction applied Summed Stress Score: 5 Summed Rest Score: 6 Summed Difference Score: 0 PERFUSION FINDINGS Small to moderate area of moderately decreased tracer uptake involving the mid anterolateral, mid inferolateral and apical lateral regions. No significant reversibility was noted in these regions. FUNCTIONAL RESULTS (calculated via Gated SPECT) Stress Image LV EF (%): 57 Stress EDV (mL):83 TID: 0.85 Stress ESV (mL):36 FUNCTIONAL FINDINGS: Segmental wall motion analysis revealing no gross wall motion abnormalities IMPRESSIONS 1. Myocardial perfusion imaging revealing small to moderate area of persistent decreased tracer uptake involving the anterolateral, inferolateral and apical lateral regions suggesting myocardial scarring versus attenuation artifact. 2. Normal LV ejection fraction 57%. 3. LV wall motion analysis revealing no gross wall motion abnormalities. 4. Normal LV volume Low probability for coronary ischemia, based on the above findings. No similar previous studies are available for comparison Dr Wenceslao Redmond MD [facility] (Electronically Signed) Final Date: 23 February 2024 16:17 S
[2024-02-23] MEDS: calcium carb-vit d 600mg/400unit 1 Tablet 1 EACH PO (09:24)
[2024-02-23] MEDS: atorvastatin 40 mg Tablet 20 MG PO (09:24)
[2024-02-23] MEDS: enoxaparin 40 mg/0.4 mL Syringe SUBCUT (09:24)
[2024-02-23] MEDS: thiamine 100 mg Tablet PO (09:24)
[2024-02-23] MEDS: multivitamin therapeutic Tablet 1 TAB PO (09:24)
[2024-02-23] MEDS: folic acid 1 mg Tablet PO (09:24)
[2024-02-23] MEDS: sennosides-docusate Tablet 1 TAB PO (09:25)
[2024-02-23] MEDS: aspirin 81 mg EC Tablet PO (09:33)
[2024-02-23] MEDS: pantoprazole DR 40 mg Tablet PO (09:33)
[2024-02-23] MEDS: morphine IR 15 mg Tablet PO (13:59)
--- NOTE | 2024-02-23 16:38 | PM.PN ---
Vitals/I&O/Wt Last Vital Signs Temp 97.4 F L 02/23/24 10:46 Pulse 75 02/23/24 16:00 Resp 17 02/23/24 16:00 BP 162/88 02/23/24 16:00 Pulse Ox 95 02/23/24 16:00 O2 Del Method Room Air 02/23/24 10:46 02/23/24 02/23/24 02/23/24 06:59 14:59 22:59 Intake Total 1200 / 1200 Balance 1200 / 1200 Weight last 48 hrs Weight 183 lb Weight 183 lb 7 oz Weight 188 lb 1.6 oz Weight 175 lb Data 02/23/24 04:43 02/23/24 04:43 Other Labs: Laboratory Last Values WBC 5.04 10^3/uL (3.29-11.43) 02/23/24 04:43 RBC 5.04 10^6/uL (3.85-5.65) 02/23/24 04:43 Hgb 16.10 g/dL (11.27-16.99) 02/23/24 04:43 Hct 48.2 % (37-53) 02/23/24 04:43 MCV 95.6 fl (82-101) 02/23/24 04:43 MCH 31.9 pg (27-33) 02/23/24 04:43 MCHC 33.4 g/dL (30-55) 02/23/24 04:43 RDW 13.8 % (12.1-15.1) 02/23/24 04:43 Plt Count 119 10^3/cmm (157-399) L 02/23/24 04:43 MPV 8.7 fL (7.4-10.4) 02/23/24 04:43 Neut % (Auto) 66.1 % 02/23/24 04:43 Lymph % (Auto) 23.8 % 02/23/24 04:43 [place] % (Auto) 7.3 % 02/23/24 04:43 Eos % (Auto) 2.0 % 02/23/24 04:43 Baso % (Auto) 0.4 % 02/23/24 04:43 Neut # (Auto) 3.33 10^3/uL (1.8-7.7) 02/23/24 04:43 Lymph # (Auto) 1.2 10^3/uL (0.8-4.8) 02/23/24 04:43 [place] # (Auto) 0.4 10^3/uL (0.2-0.9) 02/23/24 04:43 Eos # (Auto) 0.1 10^3/uL (0.0-0.8) 02/23/24 04:43 Baso # (Auto) 0.0 10^3/uL (0.0-0.1) 02/23/24 04:43 Nucleated RBC % (auto) 0 % 02/23/24 04:43 Nucleated RBCs # 0.0 /100WBC 02/23/24 04:43 PT 14.40 SECONDS (12.1-14.9) 02/21/24 21:58 INR 1.08 (0.8-1.2) 02/21/24 21:58 D-Dimer 1.48 ug/mLFEU (0-0.59) H 02/21/24 22:08 Sodium 135 mmol/L (136-145) L 02/23/24 04:43 Potassium 4.0 mmol/L (3.5-5.1) 02/23/24 04:43 Chloride 103 mmol/L (98-107) 02/23/24 04:43 Carbon Dioxide 24 mmol/L (22-29) 02/23/24 04:43 Anion Gap 12.0 (5-19) 02/23/24 04:43 BUN 9 mg/dL (8-23) 02/23/24 04:43 Creatinine 0.8 mg/dL (0.7-1.2) 02/23/24 04:43 GFR Calculation Not Reportable 02/23/24 04:43 Glucose 117 mg/dL (65-115) H 02/23/24 04:43 Calculated Osmolality 280 mOsm/kg (285-295) L 02/23/24 04:43 Calcium 8.9 mg/dL (8.5-10.5) 02/23/24 04:43 Phosphorus 3.5 mg/dL (2.5-4.5) 02/22/24 04:30 Magnesium 2.0 mg/dL (1.7-2.3) 02/22/24 04:30 Total Bilirubin 0.9 mg/dL (0.15-1.2) 02/23/24 04:43 AST 27 U/L (0-40) 02/23/24 04:43 ALT 18 U/L (0-41) 02/23/24 04:43 Alkaline Phosphatase 75 U/L (40-130) 02/23/24 04:43 Troponin T Baseline 16 ng/L (0-15) H 02/21/24 21:58 Troponin T 120 Minute 13.43 ng/L (0-15) 02/21/24 23:54 Delta Troponin T -2.57 ABS# (0-10) L 02/21/24 23:54 Troponin T Hi Sens 6Hr 12.24 ng/L (0-15) 02/22/24 04:30 Troponin T Hi Sens 6Hr Delta -3.76 ng/L (0-12) L 02/22/24 04:30 C-Reactive Protein 6.5 mg/L (0.0-4.9) H 02/23/24 04:43 NT-Pro-B Natriuret Pep 494 pg/mL (0-125) H 02/21/24 21:58 Total Protein 6.3 g/dL (6.6-8.7) L 02/23/24 04:43 Albumin 3.6 g/dL (3.5-5.2) 02/23/24 04:43 Globulin 2.7 g/dL (1.3-4.6) 02/23/24 04:43 Vitamin B12 188 pg/mL (232-1245) L 02/21/24 23:54 25-OH Vitamin D Total 12 ng/mL (30-100) L 02/21/24 23:54 TSH 3.68 uIU/mL (0.27-4.20) 02/21/24 23:54 PTH Intact 77.8 pg/mL (15-65) H 02/21/24 23:54 Calcium (PTH Intact) 8.1 mg/dL (8.5-10.5) L 02/21/24 23:54 Ethyl Alcohol 150 mg/dL (0-10) H 02/21/24 23:54 Coding Level of Care Code Acute Code for Chg Fwd
--- NOTE | 2024-02-23 23:15 | PM.DCS ---
Discharge Providers Date of Admission: 02/22/24 01:38 Date of Discharge: February 23, 2024 Attending Provider at Admission: Dallas Uribe MD Attending Provider at Discharge: Yvon Philip Primary Care Provider: Abhay Alvarenga MD Diagnoses at Discharge Discharge Diagnosis (1) Recurrent syncope: Status: Acute (2) Pacemaker-mediated tachycardia: Status: Acute (3) Atherosclerotic heart disease of [place] coronary artery with other forms of angina pectoris: Status: Acute (4) Chest pain: Status: Acute Qualifiers: Chest pain type: unspecified Qualified Code(s): R07.9 - Chest pain, unspecified Reason for Visit Reason for Visit: CP Brief History: Rahul Carl is a 73 year old male with history of recurrent syncopal events, coronary disease, status post pacemaker placement, presenting today with chief complaint of 2 syncopal events at home. In the past patient was started on midodrine as well for orthostatic hypotension, review of records reveal he has history of grade 1 diastolic dysfunction, carotid duplex without carotid artery stenosis, patient is endorsing drinking alcohol up to 20 beers a day. Diagnostic workup in the ER revealed hyponatremia, pacemaker interrogation requested, cardiology consulted, he will stay on fluid restriction in ICU EKG showing paced rhythm up to 60s, EMS reported that when they received the patient heart rate was low and there was no pacemaker spikes and there was concern that he is not getting captured beats Patient is stating that around 8 PM he was going towards his bedroom when he experienced for syncopal event, he blacked out for few seconds, he landed on a nightstand, after an hour he had another episode while he was currently or just himself in the bed, he blacked out again for a few seconds 30 minutes after he start experiencing chest pain on left side he is able to pinpoint towards his left chest pain area which he is describing as pressure, chest pain is not intense at the time of my evaluation, no recent fever, diarrhea shortness of breath, patient is stating that pacemaker was placed at [facility] about 2-1/2 years ago secondary to recurrent syncopal events, he is stating that 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 He is planning to move to [facility] in summer soon. Right now he is waiting for his granddaughter graduate from high school. Troponin is 16, second troponin is 13 with negative delta BNP 494 Clinically does not look fluid overloaded Hospital Course Hospital Course His D-dimer was found abnormal and he was assessed by CT which did not show PE. No acute pulmonary findings. Noted some pleural thickening with scattered calcifications. Please follow-up, consider referral to pulmonology for additional assessment. He was additionally assessed by echocardiogram which showed normal ejection fraction, grade 1 distal dysfunction, trace MVR, trace TVR, estimated pulmonary artery pressure 23 mmHg, no pericardial effusion, no intracardiac masses. His pacemaker was interrogated, there was some report of pacemaker related tachycardia, pacemaker settings were adjusted, but it was not likely responsible for his syncopal episode. He does have chest pain on the left side, but this was reproducible with palpation, left side lower chest mid to anterior axillary line, likely after his fall. Troponin EKG series not suggestive of acute [place] or ischemia. No PE on CTA. He was noted to have unstable labile hypertension with blood pressures increasing up to 190/111 and at 1 point after receiving morphine down to 88/76. He had previously been on midodrine. As discussed with him and family certainly there is challenge for management of hypertension, and large fluctuations blood pressure may have been responsible for syncope. With very elevated blood pressures as per discussion with him and cardiology was provided with pill in pocket with lisinopril to treat in case of very elevated blood pressure, but otherwise not continuing on scheduled basis. He is also instructed on orthostatic precautions, instructed to bring his walker with him at all times in case he feels lightheaded and needs to sit down or lie down immediately. Instructed on strict fall precautions at all times to avoid injury. To help with blood pressure control he is additional instructed to avoid any alcohol. He does drink 8-10 beers per day, counseled on abstinence, given options for help with quitting. Please follow-up. He received calcium and vitamin D supplementation due to noted low vitamin D and calcium, PTH noted elevated. Please follow-up levels, consider referral to endocrinology. Discharge Data Studies Completed and Pending Completed Studies During Hospitalization Category Date Time Status CTA PE [CT angio chest PE protcl 12770] Stat Cat Scan 02/22/24 01:49 Completed XR chest 1V portable [id number] Stat Exams 02/21/24 21:54 Completed NM tu perf SPECT r/s* [id number] Routine Nuc Med 02/23/24 08:00 Completed CV. echo complete* [id number] Routine Ultrasound 02/22/24 02:19 Completed Pending at discharge Category Date Time Status Cardiac Stress Test MIBI [Sestamibi Stress Test Request Exams 02/22/24 13:15 Ordered ] Routine Radiology Impressions Chest X-Ray 02/21/24 21:54 IMPRESSION: 1. No acute cardiopulmonary abnormality. Chest CTA 02/22/24 01:49 IMPRESSION: 1. No pulmonary embolus. 2. No acute intrathoracic findings. 3. Pleural thickening with scattered calcifications, correlate with occupational exposures. 4. Additional nonacute findings as above. Laboratory Results WBC 5.04 10^3/uL (3.29-11.43) 02/23/24 04:43 RBC 5.04 10^6/uL (3.85-5.65) 02/23/24 04:43 Hgb 16.10 g/dL (11.27-16.99) 02/23/24 04:43 Hct 48.2 % (37-53) 02/23/24 04:43 MCV 95.6 fl (82-101) 02/23/24 04:43 MCH 31.9 pg (27-33) 02/23/24 04:43 MCHC 33.4 g/dL (30-55) 02/23/24 04:43 RDW 13.8 % (12.1-15.1) 02/23/24 04:43 Plt Count 119 10^3/cmm (157-399) L 02/23/24 04:43 MPV 8.7 fL (7.4-10.4) 02/23/24 04:43 Neut % (Auto) 66.1 % 02/23/24 04:43 Lymph % (Auto) 23.8 % 02/23/24 04:43 [place] % (Auto) 7.3 % 02/23/24 04:43 Eos % (Auto) 2.0 % 02/23/24 04:43 Baso % (Auto) 0.4 % 02/23/24 04:43 Neut # (Auto) 3.33 10^3/uL (1.8-7.7) 02/23/24 04:43 Lymph # (Auto) 1.2 10^3/uL (0.8-4.8) 02/23/24 04:43 [place] # (Auto) 0.4 10^3/uL (0.2-0.9) 02/23/24 04:43 Eos # (Auto) 0.1 10^3/uL (0.0-0.8) 02/23/24 04:43 Baso # (Auto) 0.0 10^3/uL (0.0-0.1) 02/23/24 04:43 Nucleated RBC % (auto) 0 % 02/23/24 04:43 Nucleated RBCs # 0.0 /100WBC 02/23/24 04:43 PT 14.40 SECONDS (12.1-14.9) 02/21/24 21:58 INR 1.08 (0.8-1.2) 02/21/24 21:58 D-Dimer 1.48 ug/mLFEU (0-0.59) H 02/21/24 22:08 Sodium 135 mmol/L (136-145) L 02/23/24 04:43 Potassium 4.0 mmol/L (3.5-5.1) 02/23/24 04:43 Chloride 103 mmol/L (98-107) 02/23/24 04:43 Carbon Dioxide 24 mmol/L (22-29) 02/23/24 04:43 Anion Gap 12.0 (5-19) 02/23/24 04:43 BUN 9 mg/dL (8-23) 02/23/24 04:43 Creatinine 0.8 mg/dL (0.7-1.2) 02/23/24 04:43 GFR Calculation Not Reportable 02/23/24 04:43 Glucose 117 mg/dL (65-115) H 02/23/24 04:43 Calculated Osmolality 280 mOsm/kg (285-295) L 02/23/24 04:43 Calcium 8.9 mg/dL (8.5-10.5) 02/23/24 04:43 Phosphorus 3.5 mg/dL (2.5-4.5) 02/22/24 04:30 Magnesium 2.0 mg/dL (1.7-2.3) 02/22/24 04:30 Total Bilirubin 0.9 mg/dL (0.15-1.2) 02/23/24 04:43 AST 27 U/L (0-40) 02/23/24 04:43 ALT 18 U/L (0-41) 02/23/24 04:43 Alkaline Phosphatase 75 U/L (40-130) 02/23/24 04:43 Troponin T Baseline 16 ng/L (0-15) H 02/21/24 21:58 Troponin T 120 Minute 13.43 ng/L (0-15) 02/21/24 23:54 Delta Troponin T -2.57 ABS# (0-10) L 02/21/24 23:54 Troponin T Hi Sens 6Hr 12.24 ng/L (0-15) 02/22/24 04:30 Troponin T Hi Sens 6Hr Delta -3.76 ng/L (0-12) L 02/22/24 04:30 C-Reactive Protein 6.5 mg/L (0.0-4.9) H 02/23/24 04:43 NT-Pro-B Natriuret Pep 494 pg/mL (0-125) H 02/21/24 21:58 Total Protein 6.3 g/dL (6.6-8.7) L 02/23/24 04:43 Albumin 3.6 g/dL (3.5-5.2) 02/23/24 04:43 Globulin 2.7 g/dL (1.3-4.6) 02/23/24 04:43 Vitamin B12 188 pg/mL (232-1245) L 02/21/24 23:54 25-OH Vitamin D Total 12 ng/mL (30-100) L 02/21/24 23:54 TSH 3.68 uIU/mL (0.27-4.20) 02/21/24 23:54 PTH Intact 77.8 pg/mL (15-65) H 02/21/24 23:54 Calcium (PTH Intact) 8.1 mg/dL (8.5-10.5) L 02/21/24 23:54 Ethyl Alcohol 150 mg/dL (0-10) H 02/21/24 23:54 Vitals Last Vital Signs Temp 97.4 F L 02/23/24 10:46 Pulse 75 02/23/24 16:00 Resp 17 02/23/24 16:00 BP 162/88 02/23/24 16:00 Pulse Ox 95 02/23/24 16:00 O2 Del Method Room Air 02/23/24 10:46 Discharge Plan Discharge Patient Disposition: Home Condition: Stable Prescriptions: New folic acid 1 mg Tablet 1 mg PO DAILY Qty: 90 0RF Vitamin B-1 (mononitrate) 100 mg Tablet 100 mg PO DAILY Qty: 90 0RF losartan 25 mg tablet 25 mg PO DAILY PRN (Reason: BP >160/90) Qty: 30 0RF Calcium 600 with Vitamin D3 600 mg-12.5 mcg (500 unit) capsule 2 cap PO DAILY Qty: 90 0RF Continued atorvastatin 40 mg tablet 20 mg PO DAILY acyclovir 400 mg tablet 400 mg PO EVERY OTHER DAY omeprazole 40 mg capsule,delayed release(DR/EC) 40 mg PO DAILY aspirin 81 mg tablet,delayed release (DR/EC) 81 mg PO DAILY oxycodone-acetaminophen 10-325 mg tablet 1 tab PO Q4H PRN (Reason: Pain) meclizine 25 mg tablet 25 mg PO TID PRN (Reason: Dizziness) nitroglycerin [Nitrostat] 0.4 mg Tablet, Sublingual 0.4 mg SUBLINGUAL Q5M PRN (Reason: Chest Pain) Rx Instructions: do not exceed 3 doses per episode midodrine 5 mg Tablet 5 mg PO TID Qty: 90 0RF (DME) Blood Pressure Cuff Misc See Rx Instructions .Route Qty: 1 0RF Rx Instructions: With heart rate Discharge Orders: Discharge Order (Routine); Ordered 02/23/24 Ordered By: Yvon Philip Referrals: Dr. Abhay Alvarenga [Other] - 4-7 days (FAXED RECORDS TO DOCTORS OFFICE THEY WILL CALL WITH APPOINTMENT FOR HOSPITAL FOLLOW UP We have notified your physician's clinic of the need for a follow-up appointment to be scheduled. If you have not heard from them within the next 2 business days, please call them directly. ) CARDIOLOGY [Provider Group] - 03/09/24 10:30 am (Recurrent syncope. Labile blood pressure. Pacemaker settings adjusted) Discharge Diet: Cardiac Discharge Activity: Limit activity as instructed Patient Instructions: Folic Acid (By mouth), Losartan (By mouth) (Cozaar), Syncope, Opioid Safety, Pacemaker Activity Restrictions/Additional Instructions: Please monitor your blood pressure 3 times daily and anytime you have any symptoms like lightheadedness or feeling unwell. In case you feel lightheaded sit down or lie down immediately wherever you are, do not try to go to seek a place to sit down. Bring your walker with you if needed to use it as a bench or as an assist to help you sit down or lie down on the floor if needed. Call for help. Avoid trying to fight through the symptoms to avoid fainting, falling down, injury, etc. Take blood pressure medication only if your blood pressure is elevated due to history of orthostatic symptoms. Follow-up with your primary doctor and with cardiology for reassessment of possible autonomic instability. Please avoid drinking any alcohol which will worsen your symptoms and will worsen elevated blood pressure episodes risking stroke, heart attack, as well as other complications with alcohol including liver cirrhosis, cancer of the stomach, colon, and other risks including dementia. Continue thiamine, folic acid, multivitamin. Discharge Attestations Time Spent in Discharge Care*: greater than 30 min Quality Metrics Clinical Quality Measures [ No reported AMI, CVA or VTE this stay] Coding Level of Care Code 60867 Total time (in minutes) for Discharge: 50 Diagnoses Recurrent syncope R55 Pacemaker-mediated tachycardia I49.9 Atherosclerotic heart disease of [place] coronary artery with other forms of angina pectoris I25.118 Chest pain, unspecified type R07.9 Chest pain type: unspecified
== END 2024-02-23 16:36 | disposition home or self-care (01) | DRG 315 ==
LOC: ER 23:24 → ICU 02-22 01:38 → MEDSURG 02-22 15:37
PROVIDERS: Admitting Provider Internal Medicine; Emergency Provider Internal Medicine; PCP Internal Medicine; Visit Provider Internal Medicine
DX: T82.897A Other specified complication of cardiac prosthetic devices, implants and grafts, initial encounter (principal); E87.1 Hypo-osmolality and hyponatremia; I50.32 Chronic diastolic (congestive) heart failure; R55 Syncope and collapse; R00.0 Tachycardia, unspecified; I11.0 Hypertensive heart disease with heart failure; I25.118 Atherosclerotic heart disease of native coronary artery with other forms of angina pectoris; Z95.5 Presence of coronary angioplasty implant and graft; R07.89 Other chest pain; E55.9 Vitamin D deficiency, unspecified; E83.51 Hypocalcemia; F10.90 Alcohol use, unspecified, uncomplicated; Y90.6 Blood alcohol level of 120-199 mg/100 ml; Z79.82 Long term (current) use of aspirin; Y99.9 Unspecified external cause status; Z95.0 Presence of cardiac pacemaker
CPT/HCPCS: 36415; 71045; 71275; 78452; 80048; 80053; 80307; 82306; 82310; 82607; 83735; 83880; 83970; 84100; 84443; 84484; 85025; 85378; 85610; 86140; 93005; 93017; 93306; 96372; 96375; 99285; A9500; J1650; J2060; J2785; J3411; Q9967

== ENCOUNTER → 2024-03-09 10:34 | Outpatient (BNVA) | payer MEDICARE, SELFPAY | PROVIDERS: PCP Internal Medicine; Visit Provider Nurse Practitioner Family | DX: I25.118 Atherosclerotic heart disease of native coronary artery with other forms of angina pectoris (principal); I10 Essential (primary) hypertension; Z95.0 Presence of cardiac pacemaker | CPT/HCPCS: 99213 ==